=== PATIENT | female | born 1940 | race Caucasian/White ===

== ENCOUNTER 2017-08-23 13:59 | Inpatient (IN) | payer MEDICARE ==
[2017-08-23] MEDS ORDERED: Sodium Chloride 0.9% 10 ML FLUSH Syringe IV PRN (14:24)
[2017-08-23] MEDS ORDERED: Zofran 4 MG/2 ML VIAL IV PRN (14:24)
[2017-08-23] MEDS: Lasix 40 MG PO SCH (16:12)
[2017-08-23] MEDS: Lopressor 50 MG PO SCH (21:14)
[2017-08-23] MEDS: Klor Con 10 MEQ PO SCH (21:14)
[2017-08-23] MEDS: TYLENOL 325 MG PO PRN (21:14)
[2017-08-23] MEDS: Sodium Chloride 0.9% 10 ML FLUSH Syringe IV SCH (21:15)
[2017-08-24] MEDS: Zestril 20 MG PO SCH (09:48)
[2017-08-24] MEDS: Lasix 40 MG PO SCH ×2 (09:48→16:12)
[2017-08-24] MEDS: Klor Con 10 MEQ PO SCH ×2 (09:48→21:46)
[2017-08-24] MEDS: Lopressor 50 MG PO SCH ×2 (09:48→21:46)
[2017-08-24] MEDS: PLAVIX 75 MG Tablet PO SCH (09:48)
[2017-08-24] MEDS: ECOTRIN 81 MG PO SCH (09:48)
[2017-08-24] MEDS: LIPITOR 40MG PO SCH (09:49)
[2017-08-24] MEDS ORDERED: Aplisol ID SCH (10:00)
--- NOTE | 2017-08-24 12:19 | PCM.NOTE ---
Date and Time: 08/24/17 1218 Subjective Assessment: doing ok - Review of Systems Constitutional: No Fever, No Chills Eyes: No Symptoms Ears, Nose, & Throat: No Symptoms Respiratory: No Cough, No Short Of Breath Cardiac: No Chest Pain, No Edema, No Syncope Abdominal/Gastrointestinal: No Abdominal Pain, No Nausea, No Vomiting, No Diarrhea Genitourinary Symptoms: No Dysuria Musculoskeletal: No Back Pain, No Neck Pain Skin: No Rash Neurological: No Dizziness, No Focal Weakness, No Sensory Changes Psychological: No Symptoms Endocrine: No Symptoms Hematologic/Lymphatic: No Symptoms Immunological/Allergic: No Symptoms Objective Exam General Appearance: no apparent distress, alert Neurologic Exam: alert, oriented x 3, cooperative, normal mood/affect, nml cerebellar function, sensation nml, No motor deficits Skin Exam: normal color, warm, dry Eye Exam: PERRL, EOMI, eyes nml inspection Ears, Nose, Throat Exam: normal ENT inspection, pharynx normal, moist mucous membranes Neck Exam: normal inspection, non-tender, supple, full range of motion Respiratory Exam: normal breath sounds, lungs clear, No respiratory distress Cardiovascular Exam: regular rate/rhythm, normal heart sounds Gastrointestinal/Abdomen Exam: soft, No tenderness, No mass Extremity Exam: normal inspection, normal range of motion Back Exam: normal inspection, normal range of motion, No CVA tenderness, No vertebral tenderness Pelvic Exam: deferred Rectal Exam: deferred OBJECTIVE DATA Vital Signs: Vital Signs - 24 hr Temp Pulse Resp BP Pulse Ox 08/24/17 07:44 97.4 F 59 L 18 168/70 99 08/24/17 06:53 100 08/24/17 00:11 97.9 F 61 18 149/68 96 08/23/17 20:00 98.4 F 65 20 170/71 100 08/23/17 19:32 66 20 99 08/23/17 14:11 98 F 86 20 166/74 95 08/23/17 14:00 98 F 86 20 166/74 95 Oxygen-Last 24 hours O2 Percentage 4 Liters = 36% O2 Percentage 4 Liters = 36% O2 Percentage 4 Liters = 36% O2 Percentage 4 Liters = 36% O2 Percentage 4 Liters = 36% Pain Assessment - Last Documented Pain Intensity 4 Pain Scale Used 0-10 Pain Scale Intake and Output: Intake & Output 10/31/08/23/17 08/24/17 08/25/17 11:59 11:59 11:59 11:59 Intake Total 1180 Output Total 1450 Balance -270 Weight 73.527 kg Multi-Disciplinary Progress Notes: Multi-Disciplinary Progress Notes 08/23/17 17:11 Respiratory Note by Michelle Huang N/Alondra 4LPM SPO2 95%. NO SOB ATTHIS TIME Initialized on 08/23/17 17:11 - END OF NOTE Assessment/Plan (1) Transient ischemic attack Current Visit: No Status: Acute Qualifiers: Transient cerebral ischemia type: multiple and bilateral precerebral artery syndromes Qualified Code(s): G45.2 - Multiple and bilateral precerebral artery syndromes (2) Fall at home Current Visit: No Status: Acute Qualifiers: Code(s): W19.XXXA - UNSPECIFIED FALL, INITIAL ENCOUNTER; Y92.099 - UNSP PLACE IN [facility] NON-INSTITUTIONAL RESIDENCE PLACE (3) Fracture of nose, closed Current Visit: No Status: Acute (4) Hypertension Current Visit: No Status: Acute Qualifiers: Code(s): I10 - ESSENTIAL (PRIMARY) HYPERTENSION (5) Pulmonary arterial hypertension Current Visit: No Status: Acute Code(s): I27.21 - SECONDARY PULMONARY ARTERIAL HYPERTENSION
[2017-08-24] MEDS: TYLENOL 325 MG PO PRN ×2 (13:34→21:46)
[2017-08-24] MEDS: Sodium Chloride 0.9% 10 ML FLUSH Syringe IV SCH ×3 (16:09→21:47)
[2017-08-25] MEDS: Sodium Chloride 0.9% 10 ML FLUSH Syringe IV SCH (06:58)
[2017-08-25] MEDS: LIPITOR 40MG PO SCH (09:35)
[2017-08-25] MEDS: PLAVIX 75 MG Tablet PO SCH (09:35)
[2017-08-25] MEDS: Lasix 40 MG PO SCH ×2 (09:36→17:49)
[2017-08-25] MEDS: ECOTRIN 81 MG PO SCH (09:36)
[2017-08-25] MEDS: Zestril 20 MG PO SCH (09:36)
[2017-08-25] MEDS: Lopressor 50 MG PO SCH ×2 (09:36→21:18)
[2017-08-25] MEDS: Klor Con 10 MEQ PO SCH ×2 (09:36→21:18)
--- NOTE | 2017-08-25 13:15 | PCM.NOTE ---
Date and Time: 08/25/17 1314 Subjective Assessment: doing ok - Review of Systems Constitutional: No Fever, No Chills Eyes: No Symptoms Ears, Nose, & Throat: No Symptoms Respiratory: No Cough, No Short Of Breath Cardiac: No Chest Pain, No Edema, No Syncope Abdominal/Gastrointestinal: No Abdominal Pain, No Nausea, No Vomiting, No Diarrhea Genitourinary Symptoms: No Dysuria Musculoskeletal: No Back Pain, No Neck Pain Skin: No Rash Neurological: No Dizziness, No Focal Weakness, No Sensory Changes Psychological: No Symptoms Endocrine: No Symptoms Hematologic/Lymphatic: No Symptoms Immunological/Allergic: No Symptoms Objective Exam General Appearance: no apparent distress, alert Neurologic Exam: alert, oriented x 3, cooperative, normal mood/affect, nml cerebellar function, sensation nml, No motor deficits Skin Exam: normal color, warm, dry Eye Exam: PERRL, EOMI, eyes nml inspection Ears, Nose, Throat Exam: normal ENT inspection, pharynx normal, moist mucous membranes Neck Exam: normal inspection, non-tender, supple, full range of motion Respiratory Exam: normal breath sounds, lungs clear, No respiratory distress Cardiovascular Exam: regular rate/rhythm, normal heart sounds Gastrointestinal/Abdomen Exam: soft, No tenderness, No mass Extremity Exam: normal inspection, normal range of motion Back Exam: normal inspection, normal range of motion, No CVA tenderness, No vertebral tenderness Pelvic Exam: deferred Rectal Exam: deferred OBJECTIVE DATA Vital Signs: Vital Signs - 24 hr Temp Pulse Resp BP Pulse Ox 08/25/17 08:31 99 08/25/17 08:23 97.6 F 65 19 154/69 99 08/24/17 20:47 67 18 99 08/24/17 19:54 97.4 F 67 18 163/72 95 Oxygen-Last 24 hours O2 Percentage 3 Liters = 32% O2 Percentage 4 Liters = 36% Pain Assessment - Last Documented Pain Intensity 0 Pain Scale Used 0-10 Pain Scale Intake and Output: Intake & Output 08/23/17 08/24/17 08/25/17 08/26/17 11:59 11:59 11:59 11:59 Intake Total 1180 1480 Output Total 1450 1100 Balance -270 380 Weight 73.527 kg Assessment/Plan (1) Transient ischemic attack Current Visit: Yes Status: Acute Qualifiers: Transient cerebral ischemia type: multiple and bilateral precerebral artery syndromes Qualified Code(s): G45.2 - Multiple and bilateral precerebral artery syndromes (2) Fall at home Current Visit: No Status: Acute Qualifiers: Code(s): W19.XXXA - UNSPECIFIED FALL, INITIAL ENCOUNTER; Y92.099 - UNSP PLACE IN [facility] NON-INSTITUTIONAL RESIDENCE PLACE (3) Fracture of nose, closed Current Visit: No Status: Acute (4) Hypertension Current Visit: Yes Status: Chronic Qualifiers: Code(s): I10 - ESSENTIAL (PRIMARY) HYPERTENSION (5) Pulmonary arterial hypertension Current Visit: Yes Status: Chronic Code(s): I27.21 - SECONDARY PULMONARY ARTERIAL HYPERTENSION
[2017-08-25] MEDS: Colace 100 MG PO PRN (17:49)
[2017-08-25] MEDS: Senokot-S Tablet PO PRN (17:49)
[2017-08-26 05:53] LABS: BASOPHIL % 0.3 % (0.0-0.4); Eosinophil % 4.6 % (0.00-5.0); Granulocytes % 64.7 % (36.0-66.0); Lymphocytes % 20.4 % (24.0-44.0); Mean Cell Volume 100.4 fl (78-100); Mean Platelet Volume 9.8 fl (6-9.5); Platelet Count 232 K/mm3 (150-450); Red Blood Count 2.56 M/mm3 (4.1-5.4); Red Cell Distribution Width 12.8 % (11.5-14.0); White Blood Count 6.7 K/mm3 (4.0-10.5)
[2017-08-26 05:59] LABS: Mean Corpuscular Hemoglobin 30.4 pg (26-32)
[2017-08-26 06:12] LABS: ALBUMIN 3.1 g/dL (3.4-5.0); ANION GAP 8.4 MEQ/L (5-15); BILIRUBIN,TOTAL 0.2 mg/dL (0.2-1.0); Carbon Dioxide 36.8 mEq/L (21-32); Potassium 4.8 mEq/L (3.5-5.1); Total Protein 6.4 gm/dL (6.4-8.2)
[2017-08-26] MEDS: LIPITOR 40MG PO SCH (09:21)
[2017-08-26] MEDS: ECOTRIN 81 MG PO SCH (09:21)
[2017-08-26] MEDS: Lasix 40 MG PO SCH ×2 (09:21→16:46)
[2017-08-26] MEDS: Klor Con 10 MEQ PO SCH ×2 (09:21→23:12)
[2017-08-26] MEDS: Lopressor 50 MG PO SCH ×2 (09:22→23:12)
[2017-08-26] MEDS: PLAVIX 75 MG Tablet PO SCH (09:22)
[2017-08-26] MEDS: Zestril 20 MG PO SCH (09:22)
[2017-08-26] MEDS: TYLENOL 325 MG PO PRN (16:46)
--- NOTE | 2017-08-26 19:18 | PCM.NOTE ---
Date and Time: 08/26/171916 Subjective Assessment: doing better, had another few seconds episode of TIA - Review of Systems Constitutional: No Fever, No Chills Eyes: No Symptoms Ears, Nose, & Throat: No Symptoms Respiratory: No Cough, No Short Of Breath Cardiac: No Chest Pain, No Edema, No Syncope Abdominal/Gastrointestinal: No Abdominal Pain, No Nausea, No Vomiting, No Diarrhea Genitourinary Symptoms: No Dysuria Musculoskeletal: No Back Pain, No Neck Pain Skin: No Rash Neurological: No Dizziness, No Focal Weakness, No Sensory Changes Psychological: No Symptoms Endocrine: No Symptoms Hematologic/Lymphatic: No Symptoms Immunological/Allergic: No Symptoms Objective Exam General Appearance: no apparent distress, alert Neurologic Exam: alert, oriented x 3, cooperative, normal mood/affect, nml cerebellar function, sensation nml, No motor deficits Skin Exam: normal color, warm, dry Eye Exam: PERRL, EOMI, eyes nml inspection Ears, Nose, Throat Exam: normal ENT inspection, pharynx normal, moist mucous membranes Neck Exam: normal inspection, non-tender, supple, full range of motion Respiratory Exam: normal breath sounds, lungs clear, No respiratory distress Cardiovascular Exam: regular rate/rhythm, normal heart sounds Gastrointestinal/Abdomen Exam: soft, No tenderness, No mass Extremity Exam: normal inspection, normal range of motion Back Exam: normal inspection, normal range of motion, No CVA tenderness, No vertebral tenderness Pelvic Exam: deferred Rectal Exam: deferred OBJECTIVE DATA Vital Signs: Vital Signs - 24 hr Temp Pulse Resp BP Pulse Ox 08/26/17 12:56 98.1 F 66 18 148/65 100 08/26/17 07:57 99 08/26/17 07:42 97.4 F 62 18 158/70 99 08/25/17 20:00 98.5 F 75 16 166/70 94 L Oxygen-Last 24 hours O2 Percentage 4 Liters = 36% Pain Assessment - Last Documented Pain Intensity 6 Pain Scale Used 0-10 Pain Scale Intake and Output: Intake & Output 08/24/17 08/25/17 08/26/17 08/27/17 11:59 11:59 11:59 10:59 Intake Total 1180 1480 1920 600 Output Total 1450 1100 Balance -711 608 2689 600 Weight 73.527 kg Lab Results: Lab Results-Last 24 Hours 08/26/17 08/26/17 Range/Units 05:45 05:45 WBC 6.7 (4.0-10.5) K/mm3 RBC 2.56 L (4.1-5.4) M/mm3 Hgb 7.8 L (12.0-16.0) gm/dl Hct 25.7 L (35-47) % MCV 100.4 H (78-100) fl MCH 30.4 (26-32) pg MCHC 30.4 L (32-36) g/dl RDW 12.8 (11.5-14.0) % Plt Count 232 (150-450) K/mm3 MPV 9.8 H (6-9.5) fl Gran % 64.7 (36.0-66.0) % Lymphocytes % 20.4 L (24.0-44.0) % Monocytes % 10.0 (0.0-12.0) % Eosinophils % 4.6 (0.00-5.0) % Basophils % 0.3 (0.0-0.4) % Basophils # 0.02 (0-0.4) Sodium 137 (136-145) mEq/L Potassium 4.8 (3.5-5.1) mEq/L Chloride 97 L (98-107) mEq/L Carbon Dioxide 36.8 H (21-32) mEq/L Anion Gap 8.4 (5-15) MEQ/L BUN 36 H (9-20) mg/dL Creatinine 1.47 H (0.55-1.30) mg/dl Estimated GFR 37 ML/MIN Glucose 105 (70-110) MG/DL Calcium 8.5 (8.5-10.1) mg/dL Total Bilirubin 0.20 (0.2-1.0) mg/dL AST 15 (15-37) U/L ALT 12 (12-78) U/L Alkaline Phosphatase 44 L (46-116) U/L Serum Total Protein 6.4 (6.4-8.2) gm/dL Albumin 3.1 L (3.4-5.0) g/dL Assessment/Plan (1) Transient ischemic attack Current Visit: Yes Status: Acute Qualifiers: Transient cerebral ischemia type: multiple and bilateral precerebral artery syndromes Qualified Code(s): G45.2 - Multiple and bilateral precerebral artery syndromes Assessment & Plan: Chief Complaint Diagnosis Deconditioning r/t weakness, recent fall, CVA Allergies Allergy/AdvReac Type Severity Reaction Status Date / Time acetaminophen Allergy Verified 06/01/16 16:40 [From Darvocet-N] diltiazem HCl [From Cardizem] Allergy Verified 06/01/16 16:40 hydralazine HCl Allergy Verified 06/01/16 16:40 [From Apresoline] morphine Allergy Verified 06/01/16 16:40 propoxyphene napsylate Allergy Verified 06/01/16 16:40 [From Darvocet-N] tetracycline Allergy Verified 06/01/16 16:40 roxanol Allergy Uncoded 06/01/16 16:40 Vital Signs (Last 24 hours) Temp Pulse Resp BP Pulse Ox 08/26/17 12:56 98.1 F 66 18 148/65 100 08/26/17 07:57 99 08/26/17 07:42 97.4 F 62 18 158/70 99 08/25/17 20:00 98.5 F 75 16 166/70 94 L Current Medications Generic Name Dose Route Start Last Admin Trade Name Freq PRN Reason Stop Dose Admin Acetaminophen 650 mg 08/23/17 14:24 08/26/17 16:46 Tylenol 325 Mg PO 09/17/17 12:38 650 mg Q4H PRN PRN Administration PAIN, FEVER, HEADACHE Aspirin 81 mg 08/23/17 14:24 08/26/17 09:21 Ecotrin 81 Mg PO 09/21/17 17:29 81 mg DAILY BARBIE Administration Atorvastatin Calcium 80 mg 08/23/17 14:24 08/26/17 09:21 Lipitor 40mg PO 09/21/17 17:59 80 mg DAILY BARBIE Administration Clopidogrel Bisulfate 75 mg 08/23/17 14:24 08/26/17 09:22 Plavix 75 Mg Tablet PO 09/22/17 09:59 75 mg DAILY BARBIE Administration Docusate Sodium 100 mg 08/23/17 14:24 08/25/17 17:49 Colace 100 Mg PO 09/17/17 12:53 100 mg BID PRN PRN Administration CONSTIPATION Furosemide 40 mg 08/23/17 14:24 08/26/17 16:46 Lasix 40 Mg PO 09/17/17 16:59 40 mg BID DIURETIC BARBIE Administration Lisinopril 40 mg 08/23/17 14:24 08/26/17 09:22 Zestril 20 Mg PO 09/19/17 09:59 40 mg DAILY BARBIE Administration Metoprolol Tartrate 50 mg 08/23/17 14:24 08/26/17 09:22 Lopressor 50 Mg PO 09/19/17 09:59 50 mg BID BARBIE Administration Ondansetron HCl 4 mg 08/23/17 14:24 Zofran 4 Mg/2 Ml Vial IV 09/19/17 05:48 Q4H PRN PRN NAUSEA/VOMITING Potassium Chloride 10 meq 08/23/17 14:24 08/26/17 09:21 Klor Con 10 Meq PO 09/17/17 21:59 10 meq BID BARBIE Administration Senna/Docusate Sodium 0 udtab 08/23/17 14:24 08/25/17 17:49 Senokot-S Tablet PO 09/17/17 12:53 1 udtab BID PRN PRN Administration CONSTIPATION Tuberculin PPD 5 unit 09/03/17 10:00 Aplisol ID 09/03/17 10:01 DAILY BARBIE Discontinued Medications Generic Name Dose Route Start Last Admin Trade Name Freq PRN Reason Stop Dose Admin Sodium Chloride 10 ml 08/23/17 14:24 08/25/17 06:58 Sodium Chloride 0.9% 10 Ml Flush Syringe IV 09/22/17 13:59 Not Given Q8HT BARBIE Sodium Chloride 10 ml 08/23/17 14:24 Sodium Chloride 0.9% 10 Ml Flush Syringe IV 09/22/17 09:14 PRN PRN FLUSH Tuberculin PPD 5 unit 08/24/17 10:00 08/24/17 09:52 Aplisol ID 08/24/17 10:01 5 unit DAILY BARBIE Administration Intake & Output (Last 24 hours) 08/24/17 08/25/17 08/26/17 08/27/17 11:59 11:59 11:59 10:59 Intake Total 1180 1480 1920 600 Output Total 1450 1100 Balance -636 824 0139 600 Weight 73.527 kg Laboratory Results (Last 24 hours) 08/26/17 08/26/17 05:45 05:45 WBC 6.7 RBC 2.56 L Hgb 7.8 L Hct 25.7 L MCV 100.4 H MCH 30.4 MCHC 30.4 L RDW 12.8 Plt Count 232 MPV 9.8 H Gran % 64.7 Lymphocytes % 20.4 L Monocytes % 10.0 Eosinophils % 4.6 Basophils % 0.3 Basophils # 0.02 Sodium 137 Potassium 4.8 Chloride 97 L Carbon Dioxide 36.8 H Anion Gap 8.4 BUN 36 H Creatinine 1.47 H Estimated GFR 37 Glucose 105 Calcium 8.5 Total Bilirubin 0.20 AST 15 ALT 12 Alkaline Phosphatase 44 L Serum Total Protein 6.4 Albumin 3.1 L Orders (Last 24 hours) Category Date Time Status BMP Routine Lab 09/06/17 04:00 Ordered CBC Routine Lab 08/27/17 04:00 Ordered CBC W DIFF Routine Lab 08/26/17 05:45 Completed CMP Routine Lab 08/26/17 05:45 Completed Tuberculin,Purif.prot.deriv. [Aplisol] Med 09/03/17 10:00 Active 5 unit ID DAILY Patient Care Notes (Last 24 hours) 08/26/17 13:00 (created 08/26/17 13:14) Nursing Note by Alva Jose Reported to this nurse pt c/o R hand feeling numb.Pt stated when she attempted to move her R hand she was unable to do so; flaccid @ time of occurrence.R hand was wrapped in blanket via warmer. B/P148/65 HR 66. t 98.1 Sp02 100% via 4 L. Pt A&O. Easy resp. ADRIAN. Episode resolve in time of V/S obtain, blanket applied and reported to this nurse. Speech cl. Pt R hand at time of neuro check was sl weaker < the left. Pt was able to lift RUE and leave per command without difficulty. Pt continue to visit and joke with family and staff. Up in chair. Call light in reach. BLe elevated at this time. Initialized on 08/26/17 13:14 - END OF NOTE 08/26/17 03:03 Nursing Note by Tiny Fernandez pt had warm prune juice, earlier in shift, had large results at approx 0030. Initialized on 08/26/17 03:03 - END OF NOTE (2) Fall at home Current Visit: No Status: Chronic Qualifiers: Code(s): W19.XXXA - UNSPECIFIED FALL, INITIAL ENCOUNTER; Y92.099 - UNSP PLACE IN [facility] NON-INSTITUTIONAL RESIDENCE PLACE (3) Fracture of nose, closed Current Visit: No Status: Acute (4) Hypertension Current Visit: Yes Status: Chronic Qualifiers: Hypertension type: essential hypertension Code(s): I10 - ESSENTIAL (PRIMARY) HYPERTENSION (5) Pulmonary arterial hypertension Current Visit: Yes Status: Chronic Code(s): I27.21 - SECONDARY PULMONARY ARTERIAL HYPERTENSION
[2017-08-26] MEDS: Colace 100 MG PO PRN (23:18)
[2017-08-27 05:55] LABS: Mean Cell Volume 101.6 fl (78-100); Mean Platelet Volume 9.6 fl (6-9.5); Platelet Count 229 K/mm3 (150-450); Red Blood Count 2.51 M/mm3 (4.1-5.4); White Blood Count 5.2 K/mm3 (4.0-10.5)
[2017-08-27 05:59] LABS: Mean Corpuscular Hemoglobin 30.2 pg (26-32)
[2017-08-27] MEDS: ECOTRIN 81 MG PO SCH (08:45)
[2017-08-27] MEDS: Zestril 20 MG PO SCH ×2 (08:46→08:47)
[2017-08-27] MEDS: Lasix 40 MG PO SCH ×2 (08:46→17:20)
[2017-08-27] MEDS: Klor Con 10 MEQ PO SCH ×2 (08:46→23:23)
[2017-08-27] MEDS: PLAVIX 75 MG Tablet PO SCH (08:46)
[2017-08-27] MEDS: LIPITOR 40MG PO SCH (08:46)
[2017-08-27] MEDS: Lopressor 50 MG PO SCH ×2 (08:46→23:23)
[2017-08-27] MEDS: FEOSOL 325 MG PO SCH (08:49)
[2017-08-27] MEDS: Colace 100 MG PO PRN (17:33)
[2017-08-27] MEDS ORDERED: AMMONIA AROMATIC IH ONE (22:01)
[2017-08-27] MEDS: TYLENOL 325 MG PO PRN (23:22)
[2017-08-28 05:49] LABS: BASOPHIL % 0.4 % (0.0-0.4); Eosinophil % 7.2 % (0.00-5.0); Granulocytes % 51.4 % (36.0-66.0); Lymphocytes % 29.3 % (24.0-44.0); Mean Cell Volume 102.5 fl (78-100); Mean Corpuscular Hemoglobin 30.9 pg (26-32); Mean Platelet Volume 9.8 fl (6-9.5); Monocytes % 11.7 % (0.0-12.0); Platelet Count 217 K/mm3 (150-450); Red Blood Count 2.36 M/mm3 (4.1-5.4); Red Cell Distribution Width 13.1 % (11.5-14.0); White Blood Count 5.2 K/mm3 (4.0-10.5)
[2017-08-28] MEDS: Lopressor 50 MG PO SCH ×2 (10:13→22:08)
[2017-08-28] MEDS: FEOSOL 325 MG PO SCH (10:13)
[2017-08-28] MEDS: Klor Con 10 MEQ PO SCH ×2 (10:13→22:08)
[2017-08-28] MEDS: Zestril 20 MG PO SCH (10:13)
[2017-08-28] MEDS: ECOTRIN 81 MG PO SCH (10:13)
[2017-08-28] MEDS: PLAVIX 75 MG Tablet PO SCH (10:13)
[2017-08-28] MEDS: LIPITOR 40MG PO SCH (10:13)
[2017-08-28] MEDS: Lasix 40 MG PO SCH ×2 (10:13→16:36)
[2017-08-28] MEDS: TYLENOL 325 MG PO PRN ×2 (11:33→16:54)
--- NOTE | 2017-08-28 13:04 | PCM.NOTE ---
Date and Time: 08/28/17 1303 Subjective Assessment: doing ok - Review of Systems Constitutional: No Fever, No Chills Eyes: No Symptoms Ears, Nose, & Throat: No Symptoms Respiratory: No Cough, No Short Of Breath Cardiac: No Chest Pain, No Edema, No Syncope Abdominal/Gastrointestinal: No Abdominal Pain, No Nausea, No Vomiting, No Diarrhea Genitourinary Symptoms: No Dysuria Musculoskeletal: No Back Pain, No Neck Pain Skin: No Rash Neurological: No Dizziness, No Focal Weakness, No Sensory Changes Psychological: No Symptoms Endocrine: No Symptoms Hematologic/Lymphatic: No Symptoms Immunological/Allergic: No Symptoms Objective Exam General Appearance: no apparent distress, alert Neurologic Exam: alert, oriented x 3, cooperative, normal mood/affect, nml cerebellar function, sensation nml, No motor deficits Skin Exam: normal color, warm, dry Eye Exam: PERRL, EOMI, eyes nml inspection Ears, Nose, Throat Exam: normal ENT inspection, pharynx normal, moist mucous membranes Neck Exam: normal inspection, non-tender, supple, full range of motion Respiratory Exam: normal breath sounds, lungs clear, No respiratory distress Cardiovascular Exam: regular rate/rhythm, normal heart sounds Gastrointestinal/Abdomen Exam: soft, No tenderness, No mass Extremity Exam: normal inspection, normal range of motion Back Exam: normal inspection, normal range of motion, No CVA tenderness, No vertebral tenderness Pelvic Exam: deferred Rectal Exam: deferred OBJECTIVE DATA Vital Signs: Vital Signs - 24 hr Temp Pulse Resp BP Pulse Ox 08/28/17 11:24 99 08/28/17 07:22 98.0 F 58 L 18 142/64 97 08/27/17 20:00 97.6 F 76 18 172/72 94 L Oxygen-Last 24 hours O2 Percentage 3 Liters = 32% O2 Percentage 4 Liters = 36% Pain Assessment - Last Documented Pain Intensity 7 Pain Scale Used 0-10 Pain Scale Intake and Output: Intake & Output 08/26/17 08/27/17 08/28/17 08/29/17 12:59 11:59 11:59 11:59 Intake Total 1440 Balance 1440 Lab Results: Lab Results-Last 24 Hours 08/28/17 Range/Units 05:05 WBC 5.2 (4.0-10.5) K/mm3 RBC 2.36 L (4.1-5.4) M/mm3 Hgb 7.3 L (12.0-16.0) gm/dl Hct 24.2 L (35-47) % MCV 102.5 H (78-100) fl MCH 30.9 (26-32) pg MCHC 30.2 L (32-36) g/dl RDW 13.1 (11.5-14.0) % Plt Count 217 (150-450) K/mm3 MPV 9.8 H (6-9.5) fl Gran % 51.4 (36.0-66.0) % Lymphocytes % 29.3 (24.0-44.0) % Monocytes % 11.7 (0.0-12.0) % Eosinophils % 7.2 H (0.00-5.0) % Basophils % 0.4 (0.0-0.4) % Basophils # 0.02 (0-0.4) Assessment/Plan (1) Transient ischemic attack Current Visit: Yes Status: Resolved Qualifiers: Transient cerebral ischemia type: multiple and bilateral precerebral artery syndromes Qualified Code(s): G45.2 - Multiple and bilateral precerebral artery syndromes (2) Fall at home Current Visit: No Status: Chronic Qualifiers: Code(s): W19.XXXA - UNSPECIFIED FALL, INITIAL ENCOUNTER; Y92.099 - UNSP PLACE IN [facility] NON-INSTITUTIONAL RESIDENCE PLACE (3) Fracture of nose, closed Current Visit: No Status: Acute (4) Hypertension Current Visit: Yes Status: Chronic Qualifiers: Hypertension type: essential hypertension Code(s): I10 - ESSENTIAL (PRIMARY) HYPERTENSION (5) Pulmonary arterial hypertension Current Visit: Yes Status: Chronic Code(s): I27.21 - SECONDARY PULMONARY ARTERIAL HYPERTENSION (6) Hiatal hernia with gastroesophageal reflux disease and esophagitis Current Visit: Yes Status: Acute Code(s): K44.9 - DIAPHRAGMATIC HERNIA WITHOUT OBSTRUCTION OR GANGRENE; K21.0 - GASTRO-ESOPHAGEAL REFLUX DISEASE WITH ESOPHAGITIS
[2017-08-28] MEDS: Protonix 40MG Tablet PO SCH ×2 (13:20→22:08)
[2017-08-28] MEDS ORDERED: Sodium Chloride 0.9% 1000 ML 1,000 ML IV SCH (14:15)
[2017-08-28] MEDS: Senokot-S Tablet PO PRN (16:54)
[2017-08-29] MEDS: Lasix 40 MG PO SCH ×2 (09:39→17:20)
[2017-08-29] MEDS: ECOTRIN 81 MG PO SCH (09:39)
[2017-08-29] MEDS: PLAVIX 75 MG Tablet PO SCH (09:39)
[2017-08-29] MEDS: Lopressor 50 MG PO SCH ×2 (09:39→21:57)
[2017-08-29] MEDS: Zestril 20 MG PO SCH (09:39)
[2017-08-29] MEDS: FEOSOL 325 MG PO SCH (09:39)
[2017-08-29] MEDS: Klor Con 10 MEQ PO SCH ×2 (09:39→21:57)
[2017-08-29] MEDS: Protonix 40MG Tablet PO SCH ×2 (09:39→21:57)
[2017-08-29] MEDS: LIPITOR 40MG PO SCH (09:40)
--- NOTE | 2017-08-29 23:39 | PCM.NOTE ---
Date and Time: 08/29/17 2335 Subjective Assessment: doing better - Review of Systems Constitutional: No Fever, No Chills Eyes: No Symptoms Ears, Nose, & Throat: No Symptoms Respiratory: No Cough, No Short Of Breath Cardiac: No Chest Pain, No Edema, No Syncope Abdominal/Gastrointestinal: No Abdominal Pain, No Nausea, No Vomiting, No Diarrhea Genitourinary Symptoms: No Dysuria Musculoskeletal: No Back Pain, No Neck Pain Skin: No Rash Neurological: No Dizziness, No Focal Weakness, No Sensory Changes Psychological: No Symptoms Endocrine: No Symptoms Hematologic/Lymphatic: No Symptoms Immunological/Allergic: No Symptoms Objective Exam General Appearance: no apparent distress, alert Neurologic Exam: alert, oriented x 3, cooperative, normal mood/affect, nml cerebellar function, sensation nml, No motor deficits Skin Exam: normal color, warm, dry Eye Exam: PERRL, EOMI, eyes nml inspection Ears, Nose, Throat Exam: normal ENT inspection, pharynx normal, moist mucous membranes Neck Exam: normal inspection, non-tender, supple, full range of motion Respiratory Exam: normal breath sounds, lungs clear, No respiratory distress Cardiovascular Exam: regular rate/rhythm, normal heart sounds Gastrointestinal/Abdomen Exam: soft, No tenderness, No mass Extremity Exam: normal inspection, normal range of motion Back Exam: normal inspection, normal range of motion, No CVA tenderness, No vertebral tenderness Pelvic Exam: deferred Rectal Exam: deferred OBJECTIVE DATA Vital Signs: Vital Signs - 24 hr Temp Pulse Resp BP Pulse Ox 08/29/17 21:59 97.7 F 67 18 159/68 100 08/29/17 19:33 99 08/29/17 16:44 66 14 97 Oxygen-Last 24 hours O2 Percentage 4 Liters = 36% Pain Assessment - Last Documented Pain Intensity 3 Pain Scale Used 0-10 Pain Scale Intake and Output: Intake & Output 08/27/17 08/28/17 08/29/17 08/30/17 11:59 11:59 11:59 11:59 Intake Total 1440 1540 1320 Balance 1440 1540 1320 Lab Results: Lab Results-Last 24 Hours 08/29/17 Range/Units 01:06 Hgb 8.7 L (12.0-16.0) gm/dl Hct 28.0 L (35-47) % Multi-Disciplinary Progress Notes: Multi-Disciplinary Progress Notes 08/29/17 11:35 (created 08/29/17 15:20) Case Management Note by Asia Ocasio CONTINUES TO PLAN TO RETURN TO APARTMENT ON DISCHARGE. NORMALLY INDEPENDENT WITH ALL ADL'S. LIKELY WILL HAVE [facility] TO FOLLOW ON DISCHARGE FOR ADDNL SUPPORT. HAS ALL NECESSARY EQUIP AT HOME. USES 4L OXYGEN PER NC, 15/05. [employer]IES ALL HOME OXYGEN. Initialized on 08/29/17 15:20 - END OF NOTE Assessment/Plan (1) Transient ischemic attack Current Visit: Yes Status: Resolved Qualifiers: Transient cerebral ischemia type: multiple and bilateral precerebral artery syndromes Qualified Code(s): G45.2 - Multiple and bilateral precerebral artery syndromes (2) Fall at home Current Visit: No Status: Chronic Qualifiers: Code(s): W19.XXXA - UNSPECIFIED FALL, INITIAL ENCOUNTER; Y92.099 - UNSP PLACE IN [facility] NON-INSTITUTIONAL RESIDENCE PLACE (3) Fracture of nose, closed Current Visit: No Status: Acute (4) Hypertension Current Visit: Yes Status: Chronic Qualifiers: Hypertension type: essential hypertension Code(s): I10 - ESSENTIAL (PRIMARY) HYPERTENSION (5) Pulmonary arterial hypertension Current Visit: Yes Status: Chronic Code(s): I27.21 - SECONDARY PULMONARY ARTERIAL HYPERTENSION (6) Hiatal hernia with gastroesophageal reflux disease and esophagitis Current Visit: Yes Status: Acute Code(s): K44.9 - DIAPHRAGMATIC HERNIA WITHOUT OBSTRUCTION OR GANGRENE; K21.0 - GASTRO-ESOPHAGEAL REFLUX DISEASE WITH ESOPHAGITIS
[2017-08-30] MEDS: Lopressor 50 MG PO SCH ×2 (10:49→21:18)
[2017-08-30] MEDS: Lasix 40 MG PO SCH ×2 (10:49→17:11)
[2017-08-30] MEDS: Klor Con 10 MEQ PO SCH ×2 (10:49→21:18)
[2017-08-30] MEDS: Zestril 20 MG PO SCH (10:49)
[2017-08-30] MEDS: FEOSOL 325 MG PO SCH (10:49)
[2017-08-30] MEDS: PLAVIX 75 MG Tablet PO SCH (10:49)
[2017-08-30] MEDS: Protonix 40MG Tablet PO SCH ×2 (10:58→21:18)
[2017-08-30] MEDS: ECOTRIN 81 MG PO SCH (10:58)
[2017-08-30] MEDS: LIPITOR 40MG PO SCH (10:59)
--- NOTE | 2017-08-30 12:51 | PCM.NOTE ---
Date and Time: 08/30/17 1250 Subjective Assessment: doing ok - Review of Systems Constitutional: No Fever, No Chills Eyes: No Symptoms Ears, Nose, & Throat: No Symptoms Respiratory: No Cough, No Short Of Breath Cardiac: No Chest Pain, No Edema, No Syncope Abdominal/Gastrointestinal: No Abdominal Pain, No Nausea, No Vomiting, No Diarrhea Genitourinary Symptoms: No Dysuria Musculoskeletal: No Back Pain, No Neck Pain Skin: No Rash Neurological: No Dizziness, No Focal Weakness, No Sensory Changes Psychological: No Symptoms Endocrine: No Symptoms Hematologic/Lymphatic: No Symptoms Immunological/Allergic: No Symptoms Objective Exam General Appearance: no apparent distress, alert Neurologic Exam: alert, oriented x 3, cooperative, normal mood/affect, nml cerebellar function, sensation nml, No motor deficits Skin Exam: normal color, warm, dry Eye Exam: PERRL, EOMI, eyes nml inspection Ears, Nose, Throat Exam: normal ENT inspection, pharynx normal, moist mucous membranes Neck Exam: normal inspection, non-tender, supple, full range of motion Respiratory Exam: normal breath sounds, lungs clear, No respiratory distress Cardiovascular Exam: regular rate/rhythm, normal heart sounds Gastrointestinal/Abdomen Exam: soft, No tenderness, No mass Extremity Exam: normal inspection, normal range of motion Back Exam: normal inspection, normal range of motion, No CVA tenderness, No vertebral tenderness Pelvic Exam: deferred Rectal Exam: deferred OBJECTIVE DATA Vital Signs: Vital Signs - 24 hr Temp Pulse Resp BP Pulse Ox 08/30/17 07:58 98.2 F 83 18 149/66 96 08/30/17 07:52 96 08/29/17 21:59 97.7 F 67 18 159/68 100 08/29/17 19:33 99 08/29/17 16:44 66 14 97 Oxygen-Last 24 hours O2 Percentage 4 Liters = 36% O2 Percentage 4 Liters = 36% Pain Assessment - Last Documented Pain Intensity 3 Pain Scale Used 0-10 Pain Scale Intake and Output: Intake & Output 08/28/17 08/29/17 08/30/17 08/31/17 11:59 11:59 11:59 11:59 Intake Total 1440 1540 1800 Balance 1440 1540 1800 Assessment/Plan (1) Transient ischemic attack Current Visit: Yes Status: Resolved Qualifiers: Transient cerebral ischemia type: multiple and bilateral precerebral artery syndromes Qualified Code(s): G45.2 - Multiple and bilateral precerebral artery syndromes (2) Fall at home Current Visit: No Status: Chronic Qualifiers: Code(s): W19.XXXA - UNSPECIFIED FALL, INITIAL ENCOUNTER; Y92.099 - UNSP PLACE IN [facility] NON-INSTITUTIONAL RESIDENCE PLACE (3) Fracture of nose, closed Current Visit: No Status: Acute (4) Hypertension Current Visit: Yes Status: Chronic Qualifiers: Hypertension type: essential hypertension Code(s): I10 - ESSENTIAL (PRIMARY) HYPERTENSION (5) Pulmonary arterial hypertension Current Visit: Yes Status: Chronic Code(s): I27.21 - SECONDARY PULMONARY ARTERIAL HYPERTENSION (6) Hiatal hernia with gastroesophageal reflux disease and esophagitis Current Visit: Yes Status: Acute Code(s): K44.9 - DIAPHRAGMATIC HERNIA WITHOUT OBSTRUCTION OR GANGRENE; K21.0 - GASTRO-ESOPHAGEAL REFLUX DISEASE WITH ESOPHAGITIS
[2017-08-30] MEDS: TYLENOL 325 MG PO PRN (20:36)
[2017-08-31] MEDS: FEOSOL 325 MG PO SCH (10:11)
[2017-08-31] MEDS: Protonix 40MG Tablet PO SCH ×2 (10:12→22:48)
[2017-08-31] MEDS: PLAVIX 75 MG Tablet PO SCH (10:12)
[2017-08-31] MEDS: Lasix 40 MG PO SCH ×2 (10:12→16:07)
[2017-08-31] MEDS: Zestril 20 MG PO SCH (10:12)
[2017-08-31] MEDS: ECOTRIN 81 MG PO SCH (10:12)
[2017-08-31] MEDS: Klor Con 10 MEQ PO SCH ×2 (10:13→22:48)
[2017-08-31] MEDS: Lopressor 50 MG PO SCH ×2 (10:13→22:48)
[2017-08-31] MEDS: LIPITOR 40MG PO SCH (10:14)
[2017-08-31] MEDS: TYLENOL 325 MG PO PRN ×2 (10:23→20:13)
--- NOTE | 2017-08-31 11:56 | PCM.NOTE ---
Date and Time: 08/31/17 1155 Subjective Assessment: doing ok Objective Exam General Appearance: no apparent distress, alert Neurologic Exam: alert, oriented x 3, cooperative, normal mood/affect, nml cerebellar function, sensation nml, No motor deficits Skin Exam: normal color, warm, dry Eye Exam: PERRL, EOMI, eyes nml inspection Ears, Nose, Throat Exam: normal ENT inspection, pharynx normal, moist mucous membranes Neck Exam: normal inspection, non-tender, supple, full range of motion Respiratory Exam: normal breath sounds, lungs clear, No respiratory distress Cardiovascular Exam: regular rate/rhythm, normal heart sounds Gastrointestinal/Abdomen Exam: soft, No tenderness, No mass Extremity Exam: normal inspection, normal range of motion Back Exam: normal inspection, normal range of motion, No CVA tenderness, No vertebral tenderness Pelvic Exam: deferred Rectal Exam: deferred OBJECTIVE DATA Vital Signs: Vital Signs - 24 hr Temp Pulse Resp BP Pulse Ox 08/31/17 07:57 97.8 F 70 16 193/90 95 08/31/17 07:01 99 08/31/17 00:00 68 153/68 08/30/17 21:00 98.4 F 78 20 177/74 96 Oxygen-Last 24 hours O2 Percentage 4 Liters = 36% O2 Percentage 4 Liters = 36% Pain Assessment - Last Documented Pain Intensity 0 Pain Scale Used 0-10 Pain Scale Intake and Output: Intake & Output 08/28/17 08/29/17 08/30/17 08/31/17 11:59 11:59 11:59 11:59 Intake Total 1440 1540 1800 1600 Balance 1440 1540 1800 1600 Multi-Disciplinary Progress Notes: Multi-Disciplinary Progress Notes 08/30/17 15:45 Physical Therapy Note by Alejandrina Patrick PATIENT TOLERATING MORE RESISTIVE EXERCISE ACTIVITIES AND MAINTAINING O2 SATS WITH 4L O2 NC AT ALL TIMES. FUNCTIONAL MOBILITY WITH ROLLER WALKER IS STABLE WITH CUES TO KEEP WALKER CLOSE ENOUGH TO SUPPORT ERECT POSTURE. MOTOR PRODUCTION IN ISOLATED MUSCLE TASKS IS STILL LABORED, BUT GROSS MOTOR TASKS ARE MORE FLUID. COGNITIVE STATUS BETTER, BUT STILL VAGUE AT TIMES. Initialized on 08/30/17 15:45 - END OF NOTE Assessment/Plan (1) Transient ischemic attack Current Visit: Yes Status: Resolved Qualifiers: Transient cerebral ischemia type: multiple and bilateral precerebral artery syndromes Qualified Code(s): G45.2 - Multiple and bilateral precerebral artery syndromes (2) Fall at home Current Visit: No Status: Chronic Qualifiers: Code(s): W19.XXXA - UNSPECIFIED FALL, INITIAL ENCOUNTER; Y92.099 - UNSP PLACE IN [facility] NON-INSTITUTIONAL RESIDENCE PLACE (3) Fracture of nose, closed Current Visit: No Status: Acute (4) Hypertension Current Visit: Yes Status: Chronic Qualifiers: Hypertension type: essential hypertension Code(s): I10 - ESSENTIAL (PRIMARY) HYPERTENSION (5) Pulmonary arterial hypertension Current Visit: Yes Status: Chronic Code(s): I27.21 - SECONDARY PULMONARY ARTERIAL HYPERTENSION (6) Hiatal hernia with gastroesophageal reflux disease and esophagitis Current Visit: Yes Status: Acute Code(s): K44.9 - DIAPHRAGMATIC HERNIA WITHOUT OBSTRUCTION OR GANGRENE; K21.0 - GASTRO-ESOPHAGEAL REFLUX DISEASE WITH ESOPHAGITIS
[2017-08-31 20:05] VITALS: BP 150/66
[2017-09-01 07:37] VITALS: PULSE 72; O2SAT 97
[2017-09-01] MEDS: FEOSOL 325 MG PO SCH (07:57)
[2017-09-01] MEDS: ECOTRIN 81 MG PO SCH (07:58)
[2017-09-01] MEDS: Lasix 40 MG PO SCH (07:58)
[2017-09-01] MEDS: Zestril 20 MG PO SCH (07:58)
[2017-09-01] MEDS: PLAVIX 75 MG Tablet PO SCH (07:58)
[2017-09-01] MEDS: Lopressor 50 MG PO SCH (07:59)
[2017-09-01] MEDS: LIPITOR 40MG PO SCH (07:59)
[2017-09-01] MEDS: Klor Con 10 MEQ PO SCH (07:59)
[2017-09-01] MEDS: Protonix 40MG Tablet PO SCH (07:59)
[2017-09-01] MEDS: TYLENOL 325 MG PO PRN (10:11)
[2017-09-03] MEDS ORDERED: Aplisol ID SCH (10:00)
== END 2017-09-01 11:25 | disposition home or self-care (01) | DRG 69 ==
LOC: MED SURG 14:01
PROVIDERS: ADMIT General Practice; ATTEND General Practice
DX: G45.2 Multiple and bilateral precerebral artery syndromes (principal); I50.43 Acute on chronic combined systolic (congestive) and diastolic (congestive) heart failure; W19.XXXA Unspecified fall, initial encounter; S02.2XXA Fracture of nasal bones, initial encounter for closed fracture; I10 Essential (primary) hypertension; I27.21 Secondary pulmonary arterial hypertension; K44.9 Diaphragmatic hernia without obstruction or gangrene; K21.0 Gastro-esophageal reflux disease with esophagitis; R53.81 Other malaise; J84.10 Pulmonary fibrosis, unspecified; E78.5 Hyperlipidemia, unspecified; R55 Syncope and collapse; Z79.899 Other long term (current) drug therapy
CPT/HCPCS: 36415; 36430; 80053; 82270; 85014; 85018; 85025; 85027; 86850; 86900; 86901; 86922; 94760; P9016; 97110-GP; A9270-GY

== ENCOUNTER 2019-01-07 19:17 | Emergency (ER) | payer MEDICARE ==
--- NOTE | 2019-01-07 19:44 | ERPHSYRPT ---
- History of Present Illness Time Seen by Provider: 01/07/19 19:43 Source: patient, family Exam Limitations: clinical condition Patient Subjective Stated Complaint: Pt states family made her come in. Family states she has had some confusion x 2 days and hx of confusion with UTI's. pt c/ o intermittent burning with urination. Triage Nursing Assessment: [place]/warm/dry, resp easy, a&ox4, wheeled to room ( uses walker at home to ambulate). No noted confusion at this time. Physician History: 78 y/o white female presents with 2 day h/o increasing confusion. similar sx when pt has a uti. pt did not fall. pts family states this is pretty typical for pt. we have agreed to check for uti prior to embarking on an extensive workup. pt denies headache, she denies cp, denies cough, denies abd pain. pt has painful urination. denies diarrhea. Timing/Duration: day(s) (2) Severity: mild Baseline/Normal Cognition: alert oriented x 3 Current Cognition: alert oriented x 3 Baseline Gait: walks w/o assistance Associated Symptoms: other (dysuria), No nausea, No vomiting, No numbness/ tingling in legs/feet, No slurred speech, No headache Allergies/Adverse Reactions: acetaminophen [From Darvocet-N] Allergy (Verified 06/01/16 16:40) diltiazem HCl [From Cardizem] Allergy (Verified 06/01/16 16:40) hydralazine HCl [From Apresoline] Allergy (Verified 06/01/16 16:40) morphine Allergy (Verified 06/01/16 16:40) propoxyphene napsylate [From Darvocet-N] Allergy (Verified 06/01/16 16:40) tetracycline Allergy (Verified 06/01/16 16:40) roxanol Allergy (Uncoded 06/01/16 16:40) Home Medications: Diazepam 5 mg [Valium 5 MG] 5 mg PO BID 06/01/16 [History] Docusate Sodium 100 mg [Colace 100 MG] 100 mg PO BID PRN PRN 06/01/16 [ History] Furosemide 40 mg [Lasix 40 MG] 40 mg PO BID 06/01/16 [History] Metoprolol Tartrate 50 mg [Lopressor 50 MG] 50 mg PO BID 06/01/16 [History ] Potassium Chloride 10 Meq Tab* [Klor Con 10 MEQ] 10 meq PO BID 06/01/16 [ History] Sennosides/Docusate Sodium [Senokot-S Tablet] 1 - 2 each PO BID PRN PRN [History] Hx Tetanus, Diphtheria Vaccination/Date Given: Yes Hx Influenza Vaccination/Date Given: No Hx Pneumococcal Vaccination/Date Given: No Immunizations Up to Date: Yes - Review of Systems Constitutional: No Symptoms Eyes: No Symptoms Ears, Nose, & Throat: No Symptoms Respiratory: No Symptoms Cardiac: No Symptoms Abdominal/Gastrointestinal: No Symptoms Genitourinary Symptoms: Dysuria, Frequency Musculoskeletal: No Symptoms Skin: No Symptoms Neurological: No Symptoms Psychological: No Symptoms Endocrine: No Symptoms Hematologic/Lymphatic: No Symptoms Immunological/Allergic: No Symptoms All Other Systems: Reviewed and Negative - Past Medical History Pertinent Past Medical History: Yes Neurological History: Seizures, Stroke, TIA ENT History: Cataracts Cardiac History: Congestive Heart Failure, Hypertension Respiratory History: CHF, Other Endocrine Medical History: No Pertinent History Musculoskeletal History: Arthritis GI Medical History: Ulcer History: No Pertinent History Psycho-Social History: No Pertinent History Female Reproductive Disorders: No Pertinent History Other Medical History: pulmonary fibrosis, anemia, hand tremors post stroke - Past Surgical History Past Surgical History: Yes Neuro Surgical History: No Pertinent History Cardiac: No Pertinent History Respiratory: No Pertinent History Gastrointestinal: Appendectomy, Cholecystectomy Genitourinary: No Pertinent History Musculoskeletal: No Pertinent History Female Surgical History: Hysterectomy Other Surgical History: knee surgery - Social History Smoking Status: Never smoker Exposure to second hand smoke: No Drug Use: none Patient Lives Alone: No - Female History Hx Now: No - Nursing Vital Signs Nursing Vital Signs: Initial Vital Signs Temperature 97.9 F 01/07/19 19:29 Pulse Rate 74 01/07/19 19:29 Respiratory Rate 16 01/07/19 19:29 Blood Pressure 190/96 01/07/19 19:29 O2 Sat by Pulse Oximetry 96 01/07/19 19:29 - [place] Coma Scale Best Eye Response ([place]): (4) open spontaneously Best Verbal Response ([place]): (5) oriented Best Motor Response ([place]): (6) obeys commands [place] Total: 15 - Physical Exam General Appearance: no apparent distress, alert Eye Exam: bilateral eye: normal inspection, PERRL, EOMI Ears, Nose, Throat Exam: normal ENT inspection, moist mucous membranes Neck Exam: normal inspection, non-tender, supple, full range of motion Respiratory: normal breath sounds, lungs clear, airway intact, No chest tenderness, No respiratory distress Cardiovascular: regular rate/rhythm, normal heart sounds, normal peripheral pulses Gastrointestinal: soft, normal bowel sounds, No tenderness, No guarding, No rebound Pelvic Exam: not done Rectal Exam: not done Back Exam: normal inspection, normal range of motion, CVA tenderness Extremity Exam: normal inspection, normal range of motion, pelvis stable Mental Status: alert, oriented x 3, cooperative guest advisor Exam: normal hearing, normal speech, PERRL, tongue midline Coordination/Gait: normal finger to nose Motor/Sensory: no motor deficit, no sensory deficit Skin Exam: normal color, warm, dry SpO2 Interpretation: normal SpO2: 96 O2 Delivery: Room Air - Course Nursing assessment & vital signs reviewed: Yes Ordered Tests: Active Orders 24 hr Category Date Time Status UA W/RFX UR CULTURE Stat Lab 01/07/19 20:20 Completed Lab/Rad Data: Laboratory Results 01/07/19 Range/Units 20:20 Urine Color STRAW (YELLOW) Urine Appearance CLEAR (CLEAR) Urine pH 7.0 (5-6) Ur Specific [place] 1.008 (1.005-1.025) Urine Protein 30 (Negative) Urine Ketones NEGATIVE (NEGATIVE) Urine Blood NEGATIVE (0-5) Joao/ul Urine Nitrite NEGATIVE (NEGATIVE) Urine Bilirubin NEGATIVE (NEGATIVE) Urine Urobilinogen NEGATIVE (0-1) mg/dL Ur Leukocyte Esterase NEGATIVE (NEGATIVE) Urine RBC (Auto) 0-2 (0-2) /HPF U Epithel Cells (Auto) NONE (FEW) /HPF Urine Culture Reflexed NO (NO) Urine Glucose NEGATIVE (NEGATIVE) mg/dL - Progress Progress: improved, re-examined Progress Note: 01/07/19 21:23 pt not confused. family and pt do not want any other workup. i think this is reasonable. they feel she is not sleeping well because of back pain then sleeps during the day. will give a take home norco 5/325 and have pt take 1/2 tab at home and the other 1/2 tomorrow night if needed. Counseled pt/family regarding: lab results, diagnosis, need for follow-up - Departure Time of Disposition: 21:24 Departure Disposition: Home Clinical Impression: Confusion, Insomnia Condition: Stable Critical Care Time: No Referrals: LYNDSEY ARRIAGA MD [Primary Care Provider] - Additional Instructions: drink plenty of fluids. give 1/2 norco tonight at home. repeat tomorrow night if needed. call your primary doctor tomorrow for further management. return to ED if symptoms worsen.
[2019-01-07 20:34] LABS: Appearance CLEAR (CLEAR); Bilirubin NEGATIVE (NEGATIVE); Blood NEGATIVE Ery/ul (0-5); Glucose NEGATIVE (NEGATIVE); Ketones NEGATIVE (NEGATIVE); Leukocyte Esterase NEGATIVE (NEGATIVE); Nitrite NEGATIVE (NEGATIVE); Protein,Urine Dip 30 (Negative); RBC 0-2 /HPF (0-2); Specific Gravity 1.008 (1.005-1.025); Urobilinogen NEGATIVE mg/dL (0-1)
[2019-01-07] MEDS ORDERED: NORCO 5/325 MG PO ONE (21:27)
[2019-01-07 21:31] VITALS: BP 187/82; PULSE 70; O2SAT 99
[2019-01-07] MEDS ORDERED: NORCO 5/325 MG ONE (21:31)
== END 2019-01-07 21:44 | disposition home or self-care (01) ==
LOC: ED 19:17
DX: R41.0 Disorientation, unspecified (principal); G47.00 Insomnia, unspecified; I50.9 Heart failure, unspecified; I10 Essential (primary) hypertension; M19.90 Unspecified osteoarthritis, unspecified site; G40.909 Epilepsy, unspecified, not intractable, without status epilepticus; Z86.73 Personal history of transient ischemic attack (TIA), and cerebral infarction without residual deficits; Z87.440 Personal history of urinary (tract) infections; Z79.899 Other long term (current) drug therapy
CPT/HCPCS: 81001; 99283; A9270-GY

== ENCOUNTER 2019-02-16 13:32 | Inpatient (IN) | payer MEDICARE ==
[~2019-02-16 13:32] MED LIST: Klor Con 10 MEQ PO ONE; Lopressor 50 MG ONE; MAG-OX 400 ONE; ROCEPHIN 1 Gm-D5w 50 ml Bag** 1 G/50 ML IVPB IV ONE; Valium 5 MG ONE
[2019-02-16] MEDS ORDERED: Sodium Chloride 0.9% 500 ML 500 ML IV ONE (15:47)
[2019-02-16] MEDS ORDERED: TYLENOL 325 MG PO PRN (15:57)
[2019-02-16] MEDS ORDERED: Zofran 4 MG/2 ML VIAL IV PRN (15:59)
[2019-02-16 19:03] LABS: Appearance CLEAR (CLEAR); Bilirubin NEGATIVE (NEGATIVE); Blood NEGATIVE Ery/ul (0-5); Epithelial Cells RARE /HPF (FEW); Glucose NEGATIVE (NEGATIVE); Ketones NEGATIVE (NEGATIVE); Leukocyte Esterase NEGATIVE (NEGATIVE); Nitrite NEGATIVE (NEGATIVE); Protein,Urine Dip NEGATIVE (Negative); Specific Gravity 1.008 (1.005-1.025); Urobilinogen NEGATIVE mg/dL (0-1)
[2019-02-16] MEDS: Sodium Chloride 0.9% 1000 ML 1,000 ML IV SCH (20:22)
[2019-02-16] MEDS ORDERED: NORVASC 5 MG PO ONE (21:06)
--- NOTE | 2019-02-16 21:12 | PCM.HP ---
History of Present Illness - Chief Complaint Chief Complaint: DEHYDRATION,BACK PAIN,DIARRHEA History of Present Illness: is a 78 year old female of Dr. Ching with back pain, pulmonary fibrosis, cerebral aneurism, HTN, and hypomagnesemia who came to with 2 weeks of diarrhea and recent dysuria. She had stools 3-4 x a day which became like jelly in consistency. No fever. Decreased po intake. Some vomiting ("dry heaves.") She c/o dizziness and chest pain with walking (resolved with sitting down x 20 min). She was found in to have Cr of 1.9, which is unusually high per her and her daughter's report. She c/o of being very weak today. She was admitted for IV fluids and she is feeling better. The RN was concerned about crackles in her lungs and stopped the bolus; however pt says she is always crackly due to her pulmonary fibrosis. - Review of Systems Constitutional: Weakness, No Fever Abdominal/Gastrointestinal: Vomiting, Diarrhea Genitourinary Symptoms: Dysuria, Frequency, Hematuria (microscopic, not luly), Incontinence Musculoskeletal: Back Pain (resolved after admission) Skin: Rash (intermittent, pruritic) Psychological: Memory Loss, No Depression, No Suicidal Ideations All Other Systems: Reviewed and Negative Medications & Allergies Home Medications: Home Medication List Diazepam 5 mg [Valium 5 MG] 5 mg PO HS 06/01/16 [History Confirmed ] Docusate Sodium 100 mg [Colace 100 MG] 100 mg PO BID PRN PRN 06/01/16 [ History Confirmed 02/16/19] Furosemide 40 mg [Lasix 40 MG] 40 mg PO BID 06/01/16 [History Confirmed ] Metoprolol Tartrate 50 mg [Lopressor 50 MG] 50 mg PO BID 06/01/16 [ History Confirmed 02/16/19] Potassium Chloride 10 Meq Tab* [Klor Con 10 MEQ] 10 meq PO BID 06/01/16 [ History Confirmed 02/16/19] Sennosides/Docusate Sodium [Senokot-S Tablet] 1 - 2 each PO BID PRN PRN [History Confirmed 02/16/19] Clopidogrel Bisulfate 75 mg [PLAVIX 75 MG Tablet] 75 mg PO DAILY #30 tablet 09/01/17 [Rx Confirmed 02/16/19] Lisinopril 20 mg [Zestril 20 MG] 40 mg PO DAILY #30 tablet 09/01/17 [Rx Confirmed 02/16/19] PANTOPRAZOLE 40 mg Tablet [Protonix 40MG Tablet] 40 mg PO DAILY #30 tab [Rx Confirmed 02/16/19] Amlodipine Besylate 2.5 mg PO DAILY 02/16/19 [History Confirmed 02/16/19] Aspirin EC 81 mg [Ecotrin 81 mg] 81 mg PO DAILY 02/16/19 [History Confirmed 02/16/19] Magnesium Oxide 400 mg PO BID 02/16/19 [History Confirmed 02/16/19] metOLazone [Metolazone] 2.5 mg PO UD 02/16/19 [History Confirmed 02/16/19] Allergies/Adverse Reactions: Allergies Allergy/AdvReac Type Severity Reaction Status Date / Time acetaminophen Allergy Verified 06/01/16 16:40 [From Darvocet-N] diltiazem HCl [From Cardizem] Allergy Verified 06/01/16 16:40 hydralazine HCl Allergy Verified 06/01/16 16:40 [From Apresoline] morphine Allergy Verified 06/01/16 16:40 propoxyphene napsylate Allergy Verified 06/01/16 16:40 [From Darvocet-N] tetracycline Allergy Verified 06/01/16 16:40 roxanol Allergy Uncoded 06/01/16 16:40 - Past Medical History Past Medical History: Yes Neurological History: Stroke, TIA ENT History: Cataracts Cardiac History: Congestive Heart Failure, Hypertension Respiratory History: CHF, Other Endocrine Medical History: No Pertinent History Musculoskelatal History: Arthritis GI Medical History: Ulcer History: No Pertinent History Pyscho-Social History: No Pertinent History Reproductive Disorders: No Pertinent History Comment: pulmonary fibrosis, anemia, hand tremors post stroke - Female History Are you now?: No - Past Surgical History Past Surgical History: Yes Neuro Surgical History: No Pertinent History Cardiac History: No Pertinent History Respiratory Surgery: No Pertinent History GI Surgical History: Appendectomy, Cholecystectomy Genitourinary Surgical Hx: No Pertinent History Musculskeletal Surgical Hx: No Pertinent History Female Surgical History: Hysterectomy Other Surgical History: knee surgery - Social History Smoking Status: Never smoker Exposure to second hand smoke: No Alcohol: None Drug Use: none - Physical Exam Vital Signs: Vital Signs - 24 hr Temp Pulse Resp BP Pulse Ox 02/16/19 15:36 97.8 F 62 20 182/80 93 L Oxygen-Last 24 hours O2 Percentage 3 Liters = 32% Oxygen Flowrate (L/min)-RT 3 General Appearance: no apparent distress, alert Neurologic Exam: oriented x 3, cooperative Eye Exam: eyes nml inspection Ears, Nose, Throat Exam: moist mucous membranes Neck Exam: normal inspection Respiratory Exam: diminished breath sounds, crackles/rales (bilat bases, crackles), No rhonchi, No wheezing Cardiovascular Exam: regular rate/rhythm, normal heart sounds, No murmur Gastrointestinal/Abdomen Exam: soft, normal bowel sounds, tenderness (throughout ), No distention, No mass, No guarding, No rebound Extremity Exam: normal inspection, No pedal edema, No swelling Skin Exam: normal color, warm, dry, No rash Results - Labs Lab/Micro Results: Lab Results-Last 24 Hours 02/16/19 Range/Units 18:49 Urine Color STRAW (YELLOW) Urine Appearance CLEAR (CLEAR) Urine pH 7.0 (5-6) Ur Specific [place] 1.008 (1.005-1.025) Urine Protein NEGATIVE (Negative) Urine Ketones NEGATIVE (NEGATIVE) Urine Blood NEGATIVE (0-5) Joao/ul Urine Nitrite NEGATIVE (NEGATIVE) Urine Bilirubin NEGATIVE (NEGATIVE) Urine Urobilinogen NEGATIVE (0-1) mg/dL Ur Leukocyte Esterase NEGATIVE (NEGATIVE) Urine WBC (Auto) NONE (0-5) /HPF Urine RBC (Auto) NONE (0-2) /HPF U Epithel Cells (Auto) RARE (FEW) /HPF Urine Bacteria (Auto) NONE (NEGATIVE) /HPF Urine Glucose NEGATIVE (NEGATIVE) mg/dL - Other Procedures and Tests Respiratory Therapy 02/16/19 21:05 EKG STAT Assessment/Plan (1) Diarrhea Current Visit: Yes Status: Acute Assessment & Plan: If she has a stool again, will do GI panel. She is currently tolerating bland diet. Last stool yesterday. Code(s): R19.7 - DIARRHEA, UNSPECIFIED (2) Dehydration Current Visit: Yes Status: Acute Assessment & Plan: Gently hydrating her in light of her crackles in lungs (although this could be due to pulmonary fibrosis - will check CXR) and recent chest pain. Code(s): E86.0 - DEHYDRATION (3) Acute renal injury Current Visit: Yes Status: Acute Assessment & Plan: recheck in a.m. Code(s): N17.9 - ACUTE KIDNEY FAILURE, UNSPECIFIED (4) UTI (urinary tract infection) Current Visit: Yes Status: Acute Qualifiers: Urinary tract infection type: acute cystitis Assessment & Plan: Start rocephin - just some microscopic hematuria, but in light of her dysuria and incontinence will treat. Ucx pending. Code(s): N39.0 - URINARY TRACT INFECTION, SITE NOT SPECIFIED (5) Anemia Current Visit: Yes Status: Acute Qualifiers: Anemia type: unspecified type Qualified Code(s): D64.9 - Anemia, unspecified Assessment & Plan: recheck, unsure if this is chronic. Code(s): D64.9 - ANEMIA, UNSPECIFIED (6) Hypertension Current Visit: No Status: Chronic Qualifiers: Hypertension type: essential hypertension Assessment & Plan: BP to 180s systolic - add 1 time dose norvasc 5mg po tonight. Code(s): I10 - ESSENTIAL (PRIMARY) HYPERTENSION
[2019-02-16] MEDS ORDERED: ROCEPHIN 1 Gm-D5w 50 ml Bag** 1 G/50 ML IVPB IV ONE (21:21)
[2019-02-16] MEDS ORDERED: Senokot-S Tablet PO PRN (22:02)
[2019-02-16 22:13] LABS: MAGNESIUM 1.8 mg/dL (1.6-2.3); TSH, 3RD Generation 1.77 mIU/L (0.47-4.68)
[2019-02-16] MEDS: Klor Con 10 MEQ PO SCH (22:35)
[2019-02-16] MEDS: Valium 5 MG PO SCH (22:35)
[2019-02-16] MEDS: MAG-OX 400 PO SCH (22:35)
[2019-02-16] MEDS: Lopressor 50 MG PO SCH (22:35)
[2019-02-17 06:19] LABS: BASOPHIL % 0.2 % (0.0-0.4); Basophil (Absolute #) 0.01 (0-0.4); Eosinophil % 3.7 % (0.00-5.0); Eosinophil (Absolute #) 0.19 (0-0.5); Granulocyte Absolute (ANC) 3.01 (1.4-6.9); Granulocytes % 58.8 % (36.0-66.0); Hematocrit 27.1 % (35-47); Hemoglobin 8.1 gm/dl (12.0-16.0); Lymphocyte (Absolute #) 1.09 (1.0-4.6); Lymphocytes % 21.3 % (24.0-44.0); Mean Corpuscular Hgb Concent. 29.9 g/dl (32-36); Mean Platelet Volume 8.8 fl (6-9.5); Monocyte (Absolute #) 0.82 (0.0-1.3); Platelet Count 247 K/mm3 (150-450); Red Blood Count 2.71 M/mm3 (4.1-5.4); Red Cell Distribution Width 12.1 % (11.5-14.0); White Blood Count 5.1 K/mm3 (4.0-10.5)
[2019-02-17 06:24] LABS: Mean Corpuscular Hemoglobin 29.8 pg (26-32)
[2019-02-17 07:12] LABS: ALBUMIN 2.8 g/dL (3.5-5.0); ANION GAP 12.9 MEQ/L (5-15); BILIRUBIN,TOTAL 0.1 mg/dL (0.2-1.3); Calcium 8.2 mg/dL (8.4-10.2); Creatinine 1 1.37 mg/dL (0.52-1.04); Potassium 5.1 mmol/L (3.5-5.1); Total Protein 5.7 g/dL (6.3-8.2)
[2019-02-17] MEDS: Sodium Chloride 0.9% 1000 ML 1,000 ML IV SCH ×2 (08:00→16:48)
--- NOTE | 2019-02-17 08:16 | XRAY ---
Indication: Crackles. Comparison: August 18, 2017. PA/lateral chest again demonstrates diffuse scattered fibrosis/scarring, left greater than right. No focal infiltrate, consolidation, or large effusion. Heart and mediastinal structures within normal limits. Bony thorax intact again with osteopenia, degenerative changes, and scoliosis. Impression: Nonacute chest with chronic features.
[2019-02-17] MEDS ORDERED: ROCEPHIN 1 Gm-D5w 50 ml Bag** 1 G/50 ML IVPB IV SCH (10:00)
[2019-02-17] MEDS: MAG-OX 400 PO SCH ×2 (10:58→21:39)
[2019-02-17] MEDS: Protonix 40MG Tablet PO SCH (11:00)
[2019-02-17] MEDS: ECOTRIN 81 MG PO SCH (11:00)
[2019-02-17] MEDS: NORVASC 5 MG PO SCH (11:00)
[2019-02-17] MEDS: PLAVIX 75 MG Tablet PO SCH (11:01)
[2019-02-17] MEDS: Lopressor 50 MG PO SCH ×2 (11:01→21:39)
[2019-02-17] MEDS: Zestril 20 MG PO SCH (11:01)
[2019-02-17] MEDS: Klor Con 10 MEQ PO SCH ×2 (11:01→21:39)
--- NOTE | 2019-02-17 13:37 | PCM.NOTE ---
Date and Time: 02/17/19 1332 Subjective Assessment: She is feeling somewhat better. Tolerating bland diet - would like some different foods. Objective Exam General Appearance: no apparent distress, thin Neurologic Exam: alert, cooperative Skin Exam: normal color, warm, dry, No rash Ears, Nose, Throat Exam: moist mucous membranes Respiratory Exam: normal breath sounds (good air exchange), crackles/rales (LLL) , No rhonchi, No wheezing Cardiovascular Exam: regular rate/rhythm, normal heart sounds, No murmur Gastrointestinal/Abdomen Exam: soft, normal bowel sounds, No tenderness, No distention, No mass, No guarding, No rebound Extremity Exam: normal inspection, No pedal edema, No swelling OBJECTIVE DATA Vital Signs: Vital Signs - 24 hr Temp Pulse Resp BP Pulse Ox 02/17/19 11:59 98.4 F 65 17 142/66 100 02/17/19 09:25 18 02/17/19 07:37 97.5 F 61 17 116/57 96 02/17/19 06:00 17 02/17/19 04:00 97.7 F 63 17 145/67 96 02/17/19 02:00 21 02/17/19 00:00 98.3 F 72 21 179/73 96 02/16/19 22:00 20 02/16/19 20:00 98.1 F 66 20 133/60 97 02/16/19 15:36 97.8 F 62 20 182/80 93 L Oxygen-Last 24 hours O2 Percentage 3 Liters = 32% O2 Percentage 3 Liters = 32% O2 Percentage 3 Liters = 32% O2 Percentage 3 Liters = 32% O2 Percentage 3 Liters = 32% O2 Percentage 3 Liters = 32% Oxygen Flowrate (L/min)-RT 3 Pain Assessment - Last Documented Pain Intensity 6 Pain Scale Used FLACC Intake and Output: Intake & Output 02/15/19 02/16/19 02/17/19 02/18/19 11:59 11:59 11:59 11:59 Intake Total 1010 Output Total 1150 Balance -140 Weight 64.8 kg Lab Results: Lab Results-Last 24 Hours 02/16/19 02/16/19 02/16/19 Range/Units 18:49 21:04 22:24 WBC (4.0-10.5) K/mm3 RBC (4.1-5.4) M/mm3 Hgb (12.0-16.0) gm/dl Hct (35-47) % MCV (78-100) fl MCH (26-32) pg MCHC (32-36) g/dl RDW (11.5-14.0) % Plt Count (150-450) K/mm3 MPV (6-9.5) fl Gran % (36.0-66.0) % Eos # (Auto) (0-0.5) Absolute Lymphs (auto) (1.0-4.6) Absolute Monos (auto) (0.0-1.3) Lymphocytes % (24.0-44.0) % Monocytes % (0.0-12.0) % Eosinophils % (0.00-5.0) % Basophils % (0.0-0.4) % Absolute Granulocytes (1.4-6.9) Basophils # (0-0.4) Sodium (137-145) mmol/L Potassium (3.5-5.1) mmol/L Chloride (98-107) mmol/L Carbon Dioxide (22-30) mmol/L Anion Gap (5-15) MEQ/L BUN (7-17) mg/dL Creatinine (0.52-1.04) mg/dL Estimated GFR ML/MIN Glucose (74-106) mg/dL Calcium (8.4-10.2) mg/dL Magnesium 1.8 (1.6-2.3) mg/dL Total Bilirubin (0.2-1.3) mg/dL AST (14-36) U/L ALT (0-35) U/L Alkaline Phosphatase (38-126) U/L Troponin I < 0.012 (0.000-0.034) ng/mL Serum Total Protein (6.3-8.2) g/dL Albumin (3.5-5.0) g/dL TSH 3rd Generation 1.770 (0.47-4.68) mIU/L Urine Color STRAW (YELLOW) Urine Appearance CLEAR (CLEAR) Urine pH 7.0 (5-6) Ur Specific [place] 1.008 (1.005-1.025) Urine Protein NEGATIVE (Negative) Urine Ketones NEGATIVE (NEGATIVE) Urine Blood NEGATIVE (0-5) Joao/ul Urine Nitrite NEGATIVE (NEGATIVE) Urine Bilirubin NEGATIVE (NEGATIVE) Urine Urobilinogen NEGATIVE (0-1) mg/dL Ur Leukocyte Esterase NEGATIVE (NEGATIVE) Urine WBC (Auto) NONE (0-5) /HPF Urine RBC (Auto) NONE (0-2) /HPF U Epithel Cells (Auto) RARE (FEW) /HPF Urine Bacteria (Auto) NONE (NEGATIVE) /HPF Urine Glucose NEGATIVE (NEGATIVE) mg/dL 02/17/19 02/17/19 02/17/19 Range/Units 03:01 06:05 06:05 WBC 5.1 (4.0-10.5) K/mm3 RBC 2.71 L (4.1-5.4) M/mm3 Hgb 8.1 L (12.0-16.0) gm/dl Hct 27.1 L (35-47) % MCV 100.0 (78-100) fl MCH 29.8 (26-32) pg MCHC 29.9 L (32-36) g/dl RDW 12.1 (11.5-14.0) % Plt Count 247 (150-450) K/mm3 MPV 8.8 (6-9.5) fl Gran % 58.8 (36.0-66.0) % Eos # (Auto) 0.19 (0-0.5) Absolute Lymphs (auto) 1.09 (1.0-4.6) Absolute Monos (auto) 0.82 (0.0-1.3) Lymphocytes % 21.3 L (24.0-44.0) % Monocytes % 16.0 H (0.0-12.0) % Eosinophils % 3.7 (0.00-5.0) % Basophils % 0.2 (0.0-0.4) % Absolute Granulocytes 3.01 (1.4-6.9) Basophils # 0.01 (0-0.4) Sodium 135 L (137-145) mmol/L Potassium 5.1 (3.5-5.1) mmol/L Chloride 91 L D (98-107) mmol/L Carbon Dioxide 36 H (22-30) mmol/L Anion Gap 12.9 (5-15) MEQ/L BUN 57 H (7-17) mg/dL Creatinine 1.37 H (0.52-1.04) mg/dL Estimated GFR 39.5 ML/MIN Glucose 101 (74-106) mg/dL Calcium 8.2 L (8.4-10.2) mg/dL Magnesium (1.6-2.3) mg/dL Total Bilirubin 0.10 L (0.2-1.3) mg/dL AST 14 (14-36) U/L ALT 8 (0-35) U/L Alkaline Phosphatase 57 (38-126) U/L Troponin I < 0.012 (0.000-0.034) ng/mL Serum Total Protein 5.7 L (6.3-8.2) g/dL Albumin 2.8 L (3.5-5.0) g/dL TSH 3rd Generation (0.47-4.68) mIU/L Urine Color (YELLOW) Urine Appearance (CLEAR) Urine pH (5-6) Ur Specific [place] (1.005-1.025) Urine Protein (Negative) Urine Ketones (NEGATIVE) Urine Blood (0-5) Joao/ul Urine Nitrite (NEGATIVE) Urine Bilirubin (NEGATIVE) Urine Urobilinogen (0-1) mg/dL Ur Leukocyte Esterase (NEGATIVE) Urine WBC (Auto) (0-5) /HPF Urine RBC (Auto) (0-2) /HPF U Epithel Cells (Auto) (FEW) /HPF Urine Bacteria (Auto) (NEGATIVE) /HPF Urine Glucose (NEGATIVE) mg/dL 02/17/19 02/17/19 Range/Units 06:05 09:30 WBC (4.0-10.5) K/mm3 RBC (4.1-5.4) M/mm3 Hgb (12.0-16.0) gm/dl Hct (35-47) % MCV (78-100) fl MCH (26-32) pg MCHC (32-36) g/dl RDW (11.5-14.0) % Plt Count (150-450) K/mm3 MPV (6-9.5) fl Gran % (36.0-66.0) % Eos # (Auto) (0-0.5) Absolute Lymphs (auto) (1.0-4.6) Absolute Monos (auto) (0.0-1.3) Lymphocytes % (24.0-44.0) % Monocytes % (0.0-12.0) % Eosinophils % (0.00-5.0) % Basophils % (0.0-0.4) % Absolute Granulocytes (1.4-6.9) Basophils # (0-0.4) Sodium (137-145) mmol/L Potassium (3.5-5.1) mmol/L Chloride (98-107) mmol/L Carbon Dioxide (22-30) mmol/L Anion Gap (5-15) MEQ/L BUN (7-17) mg/dL Creatinine (0.52-1.04) mg/dL Estimated GFR ML/MIN Glucose (74-106) mg/dL Calcium (8.4-10.2) mg/dL Magnesium (1.6-2.3) mg/dL Total Bilirubin (0.2-1.3) mg/dL AST (14-36) U/L ALT (0-35) U/L Alkaline Phosphatase (38-126) U/L Troponin I < 0.012 < 0.012 (0.000-0.034) ng/mL Serum Total Protein (6.3-8.2) g/dL Albumin (3.5-5.0) g/dL TSH 3rd Generation (0.47-4.68) mIU/L Urine Color (YELLOW) Urine Appearance (CLEAR) Urine pH (5-6) Ur Specific [place] (1.005-1.025) Urine Protein (Negative) Urine Ketones (NEGATIVE) Urine Blood (0-5) Joao/ul Urine Nitrite (NEGATIVE) Urine Bilirubin (NEGATIVE) Urine Urobilinogen (0-1) mg/dL Ur Leukocyte Esterase (NEGATIVE) Urine WBC (Auto) (0-5) /HPF Urine RBC (Auto) (0-2) /HPF U Epithel Cells (Auto) (FEW) /HPF Urine Bacteria (Auto) (NEGATIVE) /HPF Urine Glucose (NEGATIVE) mg/dL Radiology Exams: Radiology Procedures Category Date Time Status CHEST 2 VIEWS (PA AND LAT) Routine Exams 02/17/19 06:00 Completed Multi-Disciplinary Progress Notes: Multi-Disciplinary Progress Notes 02/17/19 12:29 Case Management Note by Matilda Godoy DISCHARGE PLAN REVIEWED WITH LAYCAREGIVER/DAUGHTER. NORMALLY LIVES ALONE IN THE [facility] AND HER DAUGHTER OR GRANDSON CHECK ON HER DAILY. THE GRANDSON IS A ECONOMIC DEVELOPMENT COORDINATOR AND SETS UP HER MEDS. SHE HAS A BEDSIDE COMMODE, A WALKER, AND AN ELEVATED BED. GIVEN A LIST OF HHC & HOSPICE AGENCIES TO CHOOSE FROM, SHE AND HER SON WILL TALK THIS OVER. PLAN TO RETURN HOME TO [place]REE[place]OD[place] LEVEL OF FUNCTION. WILL CONTINUE TO MONITOR FOR ALL D/C NEEDS. THE FAMILY WILL LET D /C PLANNING KNOW WHETHER THEY CHOOSE HHC OR HOSPICE AND THAT WILL BE ARRANGED. Initialized on 02/17/19 12:29 - END OF NOTE Assessment/Plan (1) Diarrhea Current Visit: Yes Status: Resolved Qualifiers: Diarrhea type: unspecified type Qualified Code(s): R19.7 - Diarrhea, unspecified Assessment & Plan: Resolved. Code(s): R19.7 - DIARRHEA, UNSPECIFIED (2) Dehydration Current Visit: Yes Status: Acute Assessment & Plan: Some improvement. Cr from 1.9 on admission to 1.37 today. Will continue IV fluids at 100cc/hr. Code(s): E86.0 - DEHYDRATION (3) Acute renal injury Current Visit: Yes Status: Acute Code(s): N17.9 - ACUTE KIDNEY FAILURE, UNSPECIFIED (4) UTI (urinary tract infection) Current Visit: Yes Status: Acute Qualifiers: Urinary tract infection type: acute cystitis Assessment & Plan: On IV rocephin Code(s): N39.0 - URINARY TRACT INFECTION, SITE NOT SPECIFIED (5) Anemia Current Visit: Yes Status: Acute Qualifiers: Anemia type: unspecified type Qualified Code(s): D64.9 - Anemia, unspecified Assessment & Plan: hgb from 9.6 on admission to 8.1 today. Family notes she has a history of anemia - was started on po iron but couldn't tolerate it due to constipation. Discussed adding miralax. Will recheck tomorrow. Code(s): D64.9 - ANEMIA, UNSPECIFIED (6) Hypertension Current Visit: No Status: Chronic Qualifiers: Hypertension type: essential hypertension Assessment & Plan: All bp < 180 systolic. Code(s): I10 - ESSENTIAL (PRIMARY) HYPERTENSION (7) DVT prophylaxis Current Visit: Yes Status: Acute Assessment & Plan: She has a history of PUD and GI bleed, with current Hgb 8.1, so will do SCDs for prophylaxis. Code(s): [id number] -
[2019-02-17] MEDS: Valium 5 MG PO SCH (21:39)
[2019-02-17] MEDS: ROCEPHIN 1 Gm-D5w 50 ml Bag** 1 G/50 ML IVPB IV SCH (21:40)
[2019-02-18] MEDS: Sodium Chloride 0.9% 1000 ML 1,000 ML IV SCH (05:49)
[2019-02-18 06:10] LABS: Hematocrit 30.5 % (35-47); Hemoglobin 9.2 gm/dl (12.0-16.0); Mean Cell Volume 101.7 fl (78-100); Mean Corpuscular Hgb Concent. 30.2 g/dl (32-36); Mean Platelet Volume 10.9 fl (6-9.5); Platelet Count 195 K/mm3 (150-450); Red Cell Distribution Width 12.3 % (11.5-14.0); White Blood Count 5.7 K/mm3 (4.0-10.5)
[2019-02-18 06:17] LABS: Mean Corpuscular Hemoglobin 30.6 pg (26-32)
[2019-02-18 07:37] LABS: ANION GAP 13.2 MEQ/L (5-15); Calcium 7.7 mg/dL (8.4-10.2); Creatinine 1 1.07 mg/dL (0.52-1.04); Potassium 5.5 mmol/L (3.5-5.1)
[2019-02-18 07:44] LABS: BAND 2 % (0.0-2.0); Eosinophil 2 % (0.00-3.0); Lymphocytes 19 % (24-44); Monocyte 3 % (0.0-12.0); Neutrophils 74 % (36.0-66.0); Nucleated Red Blood Cell 2 %; Total Cells Counted 100
[2019-02-18 07:45] LABS: ANISOCYTOSIS 1+; Platelet Estimate NORMAL (NORMAL); Poikilocytosis 1+; Polychromasia RARE; Toxic Granulation 1+
[2019-02-18] MEDS: Protonix 40MG Tablet PO SCH (10:50)
[2019-02-18] MEDS: NORVASC 5 MG PO SCH (10:50)
[2019-02-18] MEDS: Lopressor 50 MG PO SCH ×2 (10:50→21:40)
[2019-02-18] MEDS: ECOTRIN 81 MG PO SCH (10:50)
[2019-02-18] MEDS: Klor Con 10 MEQ PO SCH ×2 (10:50→21:40)
[2019-02-18] MEDS: Zestril 20 MG PO SCH (10:51)
[2019-02-18] MEDS: MAG-OX 400 PO SCH ×2 (10:51→21:41)
[2019-02-18] MEDS: PLAVIX 75 MG Tablet PO SCH (10:51)
--- NOTE | 2019-02-18 12:55 | PCM.NOTE ---
Date and Time: 02/18/19 1253 Subjective Assessment: still very weak, shortness of breath - Review of Systems Constitutional: Fatigue, Lethargy, Weakness, No Fever, No Chills Eyes: No Symptoms Ears, Nose, & Throat: No Symptoms Respiratory: Orthopnea, Short Of Breath, No Cough Cardiac: No Chest Pain, No Edema, No Syncope Abdominal/Gastrointestinal: No Abdominal Pain, No Nausea, No Vomiting, No Diarrhea Genitourinary Symptoms: No Dysuria Musculoskeletal: No Back Pain, No Neck Pain Skin: No Rash Neurological: No Dizziness, No Focal Weakness, No Sensory Changes Psychological: No Symptoms Endocrine: No Symptoms Hematologic/Lymphatic: No Symptoms Immunological/Allergic: No Symptoms Objective Exam General Appearance: moderate distress, alert Neurologic Exam: alert, oriented x 3, cooperative, normal mood/affect, nml cerebellar function, sensation nml, No motor deficits Skin Exam: normal color, warm, dry Eye Exam: PERRL, EOMI, eyes nml inspection Ears, Nose, Throat Exam: normal ENT inspection, pharynx normal, moist mucous membranes Neck Exam: normal inspection, non-tender, supple, full range of motion Respiratory Exam: normal breath sounds, lungs clear, No respiratory distress Cardiovascular Exam: regular rate/rhythm, normal heart sounds Gastrointestinal/Abdomen Exam: soft, No tenderness, No mass Extremity Exam: normal inspection, normal range of motion Back Exam: normal inspection, normal range of motion, No CVA tenderness, No vertebral tenderness Pelvic Exam: deferred Rectal Exam: deferred OBJECTIVE DATA Vital Signs: Vital Signs - 24 hr Temp Pulse Resp BP Pulse Ox 02/18/19 07:48 98.4 F 69 16 190/75 100 02/18/19 07:45 100 02/18/19 06:00 20 02/18/19 04:00 98.6 F 74 20 163/70 97 02/18/19 02:00 20 02/18/19 00:10 98.3 F 63 20 161/72 98 02/17/19 22:00 20 02/17/19 20:00 98.4 F 63 20 153/69 97 02/17/19 17:08 18 02/17/19 16:00 98.3 F 59 L 17 136/64 99 02/17/19 14:00 17 Oxygen-Last 24 hours O2 Percentage 3 Liters = 32% O2 Percentage 3 Liters = 32% O2 Percentage 3 Liters = 32% O2 Percentage 3 Liters = 32% O2 Percentage 3 Liters = 32% Pain Assessment - Last Documented Pain Intensity 6 [facility] Intake and Output: Intake & Output 02/16/19 02/17/19 02/18/19 02/19/19 11:59 11:59 11:59 11:59 Intake Total 1010 3632 Output Total 1150 2400 Balance -140 1232 Weight 64.8 kg Lab Results: Lab Results-Last 24 Hours 02/18/19 02/18/19 Range/Units 05:38 05:38 WBC 5.7 (4.0-10.5) K/mm3 RBC 3.00 L (4.1-5.4) M/mm3 Hgb 9.2 L (12.0-16.0) gm/dl Hct 30.5 L (35-47) % MCV 101.7 H (78-100) fl MCH 30.6 (26-32) pg MCHC 30.2 L (32-36) g/dl RDW 12.3 (11.5-14.0) % Plt Count 195 (150-450) K/mm3 MPV 10.9 H (6-9.5) fl Segmented Neutrophils 74 H (36.0-66.0) % Band Neutrophils 2 (0.0-2.0) % Lymphocytes (Manual) 19 L (24-44) % Monocytes (Manual) 3 (0.0-12.0) % Eosinophils (Manual) 2 (0.00-3.0) % Nucleated RBCs 2 % Toxic Granulation 1+ Platelet Estimate NORMAL (NORMAL) RBC Morphology ABNORMAL Polychromasia RARE Poikilocytosis 1+ Anisocytosis 1+ Sodium 134 L (137-145) mmol/L Potassium 5.5 H (3.5-5.1) mmol/L Chloride 95 L (98-107) mmol/L Carbon Dioxide 32 H (22-30) mmol/L Anion Gap 13.2 (5-15) MEQ/L BUN 38 H (7-17) mg/dL Creatinine 1.07 H (0.52-1.04) mg/dL Estimated GFR 52.6 ML/MIN Glucose 101 (74-106) mg/dL Calcium 7.7 L (8.4-10.2) mg/dL Radiology Exams: Radiology Procedures Category Date Time Status CHEST 2 VIEWS (PA AND LAT) Routine Exams 02/17/19 06:00 Completed Assessment/Plan (1) Acute renal injury Current Visit: Yes Status: Acute Assessment & Plan: Last Vital Signs Temp 98.4 F 02/18/19 07:48 Pulse 69 02/18/19 07:48 Resp 16 02/18/19 07:48 BP 190/75 02/18/19 07:48 Pulse Ox 100 02/18/19 07:48 Allergies acetaminophen [From Darvocet-N] Allergy (Verified 06/01/16 16:40) diltiazem HCl [From Cardizem] Allergy (Verified 06/01/16 16:40) hydralazine HCl [From Apresoline] Allergy (Verified 06/01/16 16:40) morphine Allergy (Verified 06/01/16 16:40) propoxyphene napsylate [From Darvocet-N] Allergy (Verified 06/01/16 16:40) tetracycline Allergy (Verified 06/01/16 16:40) roxanol Allergy (Uncoded 06/01/16 16:40) Active Medications Acetaminophen (Tylenol 325 Mg) 650 mg PO Q4H PRN PRN PRN Reason: PAIN AND/OR FEVER Stop: 03/18/19 15:56 Amlodipine Besylate (Norvasc 5 Mg) 2.5 mg PO DAILY [facility] Stop: 03/19/19 09:59 Last Admin: 02/18/19 10:50 Dose: 2.5 mg Aspirin (Ecotrin 81 Mg) 81 mg PO DAILY BARBIE Stop: 03/19/19 09:59 Last Admin: 02/18/19 10:50 Dose: 81 mg Clopidogrel Bisulfate (Plavix 75 Mg Tablet) 75 mg PO DAILY BARBIE Stop: 03/19/19 09:59 Last Admin: 02/18/19 10:51 Dose: 75 mg Diazepam (Valium 5 Mg) 5 mg PO HS [facility] Stop: 03/18/19 21:59 Last Admin: 02/17/19 21:39 Dose: 5 mg Sodium Chloride (Sodium Chloride 0.9% 1000 Ml) 1,000 mls @ 100 mls/hr IV .Q10H BARBIE Stop: 03/18/19 15:59 Last Admin: 02/18/19 05:49 Dose: 100 mls/hr Ceftriaxone Sodium/Dextrose (Rocephin 1 Gm-D5w 50 Ml Bag) 1 g in 50 mls @ 100 mls/hr IV QPM [facility] Stop: 03/19/19 09:59 Last Admin: 02/17/19 21:40 Dose: 100 mls/hr Lisinopril (Zestril 20 Mg) 40 mg PO DAILY [facility] Stop: 03/19/19 09:59 Last Admin: 02/18/19 10:51 Dose: 40 mg Magnesium Oxide (Mag-Ox 400) 400 mg PO BID [facility] Stop: 03/18/19 21:59 Last Admin: 02/18/19 10:51 Dose: 400 mg Metoprolol Tartrate (Lopressor 50 Mg) 50 mg PO BID [facility] Stop: 03/18/19 21:59 Last Admin: 02/18/19 10:50 Dose: 50 mg Ondansetron HCl (Zofran 4 Mg/2 Ml Vial) 4 mg IV Q4H PRN PRN PRN Reason: NAUSEA/VOMITING Stop: 03/18/19 15:58 Pantoprazole Sodium (Protonix 40mg Tablet) 40 mg PO DAILY [facility] Stop: 03/19/19 09:59 Last Admin: 02/18/19 10:50 Dose: 40 mg Potassium Chloride (Klor Con 10 Meq) 10 meq PO BID [facility] Stop: 03/18/19 22:09 Last Admin: 02/18/19 10:50 Dose: 10 meq Senna/Docusate Sodium (Senokot-S Tablet) 0 udtab PO BIDP PRN PRN Reason: CONSTIPATION Stop: 03/18/19 22:01 Intake & Output 02/18/19 02/19/19 11:59 11:59 Intake Total 3632 Output Total 2400 Balance 1232 Orders 02/18/19 07:44 Oxygen Nasal Cannula 3 lpm Pulse Oximetry .spot check Lab Tests 02/18/19 02/18/19 05:38 05:38 WBC 5.7 RBC 3.00 L Hgb 9.2 L Hct 30.5 L MCV 101.7 H MCH 30.6 MCHC 30.2 L RDW 12.3 Plt Count 195 MPV 10.9 H Segmented Neutrophils 74 H Band Neutrophils 2 Lymphocytes (Manual) 19 L Monocytes (Manual) 3 Eosinophils (Manual) 2 Nucleated RBCs 2 Toxic Granulation 1+ Platelet Estimate NORMAL RBC Morphology ABNORMAL Polychromasia RARE Poikilocytosis 1+ Anisocytosis 1+ Sodium 134 L Potassium 5.5 H Chloride 95 L Carbon Dioxide 32 H Anion Gap 13.2 BUN 38 H Creatinine 1.07 H Estimated GFR 52.6 Glucose 101 Calcium 7.7 L Microbiology 02/16/19 21:32 Urine, Void Urine Culture - Final MIXED ALLYSSA; 3 OR MORE TYPES. NO PREDOMINANT ORGANISM. NO FURTHER WORKUP. PLEASE RESUBMIT IF CLINICALLY INDICATED. Code(s): N17.9 - ACUTE KIDNEY FAILURE, UNSPECIFIED (2) UTI (urinary tract infection) Current Visit: Yes Status: Acute Qualifiers: Urinary tract infection type: acute cystitis Code(s): N39.0 - URINARY TRACT INFECTION, SITE NOT SPECIFIED (3) Diarrhea Current Visit: Yes Status: Resolved Qualifiers: Diarrhea type: unspecified type Qualified Code(s): R19.7 - Diarrhea, unspecified Code(s): R19.7 - DIARRHEA, UNSPECIFIED (4) Pulmonary arterial hypertension Current Visit: No Status: Chronic Code(s): I27.21 - SECONDARY PULMONARY ARTERIAL HYPERTENSION
[2019-02-18] MEDS: Catapres 0.1 MG PO PRN ×2 (14:05→21:40)
--- NOTE | 2019-02-18 14:37 | XRAY ---
Indication: Right facial droop. Lethargy. Possible stroke. Multiple contiguous axial images obtained through the head without contrast. Comparison: October 03, 2017. Base of the brain slightly degraded by motion. Again age-appropriate global atrophy, mild/moderate periventricular degenerative micro-ischemia bilaterally, and remote left caudate head lacunar infarct. Again no acute intracranial hemorrhage, abnormal extra-axial fluid collection, or mass effect. Fourth ventricle is midline without hydrocephalus. Bony calvarium intact. Visualized paranasal sinuses and mastoid air cells are essentially clear. Impression: Mild motion artifact. Grossly nonacute senile brain again with remote left caudate head lacunar infarct. MRI may yield further information if there remains further clinical concern. CT DI 67.99
[2019-02-18 15:31] LABS: INR 1.09 (0.8-3.0); PROTIME 12.7 SECONDS (9.95-12.35)
--- NOTE | 2019-02-18 17:01 | XRAY ---
Indication: Left hand weakness. Possible stroke. Sagittal, coronal, and axial MRI brain was performed without contrast using T1, T2, FLAIR, diffusion, and ADC sequences. Comparison: August 22, 2017. Stable age-appropriate global atrophy and moderate periventricular degenerative micro-ischemia signal bilaterally. Also stable minimal micro-ischemia signal in the brainstem. New finding small remote lacunar infarcts in the left mid periventricular white matter and left caudate head. No acute intracranial hemorrhage, abnormal extra-axial fluid collection, or mass effect. Diffusion images negative for restricted signal. Fourth ventricle is midline without hydrocephalus. 7/8 cranial nerve complex bilaterally symmetric. Normal flow-void signal within the major intracerebral circulation. Normal-appearing craniocervical junction and sella turcica. Paranasal sinuses clear. Impression: 1. New finding old lacunar infarcts in the left periventricular white matter and left caudate head. 2. Stable atrophy and degenerative micro-ischemia. 3. No acute intracranial abnormalities or evidence for evolving large vessel territorial stroke.
[2019-02-18] MEDS: ROCEPHIN 1 Gm-D5w 50 ml Bag** 1 G/50 ML IVPB IV SCH (21:41)
[2019-02-18] MEDS: Valium 5 MG PO SCH (23:50)
[2019-02-19] MEDS: Sodium Chloride 0.9% 1000 ML 1,000 ML IV SCH ×2 (01:09→11:21)
--- NOTE | 2019-02-19 09:13 | PCM.NOTE ---
Date and Time: 02/19/19909 Subjective Assessment: last 24 hours events noted. Patient has cerebrovascular accident yesterday, teleneuro consult - Review of Systems Constitutional: No Fever, No Chills Eyes: No Symptoms Ears, Nose, & Throat: No Symptoms Respiratory: No Cough, No Short Of Breath Cardiac: No Chest Pain, No Edema, No Syncope Abdominal/Gastrointestinal: No Abdominal Pain, No Nausea, No Vomiting, No Diarrhea Genitourinary Symptoms: No Dysuria Musculoskeletal: No Back Pain, No Neck Pain Skin: No Rash Neurological: No Dizziness, No Focal Weakness, No Sensory Changes Psychological: No Symptoms Endocrine: No Symptoms Hematologic/Lymphatic: No Symptoms Immunological/Allergic: No Symptoms Objective Exam General Appearance: no apparent distress, alert Neurologic Exam: motor deficits, sensory deficit, disoriented, confusion, motor weakness, facial droop, aphasia, dysarthria Skin Exam: warm, dry Eye Exam: PERRL, EOMI, eyes nml inspection Ears, Nose, Throat Exam: moist mucous membranes Neck Exam: non-tender, supple Respiratory Exam: normal breath sounds, No respiratory distress Cardiovascular Exam: regular rate/rhythm, normal heart sounds Gastrointestinal/Abdomen Exam: soft, No tenderness, No mass Extremity Exam: normal inspection, normal range of motion Back Exam: normal inspection, normal range of motion, No CVA tenderness, No vertebral tenderness Pelvic Exam: deferred Rectal Exam: deferred OBJECTIVE DATA Vital Signs: Vital Signs - 24 hr Temp Pulse Resp BP Pulse Ox 02/19/19 03:51 97.3 F 75 28 H 132/66 95 02/19/19 02:25 96 02/19/19 02:06 83 17 184/73 99 02/19/19 00:40 99 02/19/19 00:00 96.9 F 82 86/50 02/18/19 21:07 94 L 02/18/19 20:00 100.8 F 79 25 H 203/80 98 02/18/19 16:00 98.5 F 62 17 154/65 99 02/18/19 12:00 97.8 F 69 16 195/79 98 Oxygen-Last 24 hours O2 Percentage 6 Liters = 44% O2 Percentage 100% O2 Percentage 3 Liters = 32% O2 Percentage 3 Liters = 32% O2 Percentage 3 Liters = 32% O2 Percentage 3 Liters = 32% Pain Assessment - Last Documented Pain Intensity 0 Pain Scale Used Reyna-Hercules Faces Intake and Output: Intake & Output 02/16/19 02/17/19 02/18/19 02/19/19 11:59 11:59 11:59 11:59 Intake Total 1010 3872 1539 Output Total 1150 2700 800 Balance -140 1172 739 Weight 64.8 kg Lab Results: Lab Results-Last 24 Hours 02/18/19 Range/Units 06:00 PT 12.7 H (9.95-12.35) SECONDS INR 1.09 (0.8-3.0) Radiology Exams: Radiology Procedures Category Date Time Status HEAD WITHOUT CONTRAST [CT] Stat Exams 02/18/19 14:11 Completed MRI BRAIN W/O CONTRAST [MRI] Stat Exams 02/18/19 16:06 Completed Assessment/Plan (1) Cerebrovascular accident (CVA) determined by clinical assessment Current Visit: Yes Status: Acute Code(s): I63.9 - CEREBRAL INFARCTION, UNSPECIFIED (2) Acute renal injury Current Visit: Yes Status: Acute Code(s): N17.9 - ACUTE KIDNEY FAILURE, UNSPECIFIED (3) UTI (urinary tract infection) Current Visit: Yes Status: Acute Qualifiers: Urinary tract infection type: acute cystitis Code(s): N39.0 - URINARY TRACT INFECTION, SITE NOT SPECIFIED (4) Diarrhea Current Visit: Yes Status: Resolved Qualifiers: Diarrhea type: unspecified type Qualified Code(s): R19.7 - Diarrhea, unspecified Code(s): R19.7 - DIARRHEA, UNSPECIFIED (5) Pulmonary arterial hypertension Current Visit: No Status: Chronic Code(s): I27.21 - SECONDARY PULMONARY ARTERIAL HYPERTENSION
[2019-02-19] MEDS ORDERED: Catapres-TTS 1 PATCH TOP SCH (10:00)
[2019-02-19] MEDS: Zestril 20 MG PO SCH (10:20)
[2019-02-19] MEDS: PLAVIX 75 MG Tablet PO SCH (10:20)
[2019-02-19] MEDS: Protonix 40MG Tablet PO SCH (10:20)
[2019-02-19] MEDS: MAG-OX 400 PO SCH ×2 (10:20→22:30)
[2019-02-19] MEDS: Lopressor 50 MG PO SCH ×2 (10:20→22:30)
[2019-02-19] MEDS: ECOTRIN 81 MG PO SCH (10:20)
[2019-02-19] MEDS: Klor Con 10 MEQ PO SCH ×2 (10:20→22:30)
[2019-02-19] MEDS: NORVASC 5 MG PO SCH (10:20)
[2019-02-19] MEDS: ROCEPHIN 1 Gm-D5w 50 ml Bag** 1 G/50 ML IVPB IV SCH (21:39)
[2019-02-19] MEDS: Valium 5 MG PO SCH (22:30)
[2019-02-20] MEDS: Sodium Chloride 0.9% 1000 ML 1,000 ML IV SCH (03:51)
[2019-02-20] MEDS ORDERED: FEVERALL 650 MG PR PRN (10:04)
[2019-02-20] MEDS ORDERED: Lasix 40 MG/4 ML IV ONE (10:15)
[2019-02-20] MEDS: Klor Con 10 MEQ PO SCH ×2 (10:27→22:00)
[2019-02-20] MEDS: PLAVIX 75 MG Tablet PO SCH (10:27)
[2019-02-20] MEDS: ECOTRIN 81 MG PO SCH (10:27)
[2019-02-20] MEDS: MAG-OX 400 PO SCH ×2 (10:27→22:00)
[2019-02-20] MEDS: Lopressor 50 MG PO SCH ×2 (10:27→22:00)
[2019-02-20] MEDS: NORVASC 5 MG PO SCH (10:27)
[2019-02-20] MEDS: Protonix 40MG Tablet PO SCH (10:28)
[2019-02-20] MEDS: Zestril 20 MG PO SCH (10:28)
--- NOTE | 2019-02-20 13:43 | PCM.NOTE ---
Date and Time: 02/20/19 1338 Subjective Assessment: patient unconscious, will continue comfort care - Review of Systems Constitutional: Lethargy Respiratory: Short Of Breath Objective Exam General Appearance: other (unconscious) Respiratory Exam: diminished breath sounds Cardiovascular Exam: irregular OBJECTIVE DATA Vital Signs: Vital Signs - 24 hr Temp Pulse Resp BP Pulse Ox 02/20/19 12:00 101 F 106 H 29 H 145/63 90 L 02/20/19 11:45 91 L 02/20/19 08:00 99.4 F 102 H 27 H 119/53 96 02/20/19 07:19 94 L 02/20/19 07:05 102 H 30 H 94 L 02/20/19 06:00 27 H 02/20/19 03:56 99.5 F 102 H 27 H 78/37 95 02/20/19 02:00 27 H 02/20/19 00:33 85 L 02/20/19 00:00 100.9 F 100 H 28 H 82/39 91 L 02/19/19 22:00 26 H 02/19/19 20:30 99.6 F 98 H 26 H 111/53 97 02/19/19 20:24 82 18 93 L 02/19/19 14:00 98.7 F 83 94 H 129/58 24 L Oxygen-Last 24 hours O2 Percentage 100% O2 Percentage 100% O2 Percentage 6 Liters = 44% O2 Percentage 5 Liters = 40% Oxygen Flowrate (L/min)-RT 15 Oxygen Flowrate (L/min)-RT 15 Pain Assessment - Last Documented Pain Intensity 0 Pain Scale Used FLACC Intake and Output: Intake & Output 02/18/19 02/19/19 02/20/19 02/21/19 11:59 11:59 11:59 11:59 Intake Total 3872 1539 1033 Output Total 2700 800 300 Balance 1172 739 733 Weight 64.8 kg Radiology Exams: Radiology Procedures Category Date Time Status HEAD WITHOUT CONTRAST [CT] Stat Exams 02/18/19 14:11 Completed MRI BRAIN W/O CONTRAST [MRI] Stat Exams 02/18/19 16:06 Completed Multi-Disciplinary Progress Notes: Multi-Disciplinary Progress Notes 02/20/19 00:36 Respiratory Note by Devin Delacruz I HAD TO TITRATE PT UP TO 15LPM ON HER OXYMASK TO MAINTAIN A SAT OF 91%. HR WAS 100, RR WAS 28. WHEN I CHECKED ON PT SHE HAD SATS OF 85% ON 6LPM. INFORMED [employer] NUR[employer]. Initialized on 02/20/19 00:36 - END OF NOTE Assessment/Plan (1) Cerebrovascular accident (CVA) determined by clinical assessment Current Visit: Yes Status: Acute Code(s): I63.9 - CEREBRAL INFARCTION, UNSPECIFIED (2) Acute renal injury Current Visit: Yes Status: Acute Code(s): N17.9 - ACUTE KIDNEY FAILURE, UNSPECIFIED (3) UTI (urinary tract infection) Current Visit: Yes Status: Acute Qualifiers: Urinary tract infection type: acute cystitis Code(s): N39.0 - URINARY TRACT INFECTION, SITE NOT SPECIFIED (4) Diarrhea Current Visit: Yes Status: Resolved Qualifiers: Diarrhea type: unspecified type Qualified Code(s): R19.7 - Diarrhea, unspecified Code(s): R19.7 - DIARRHEA, UNSPECIFIED (5) Pulmonary arterial hypertension Current Visit: No Status: Chronic Code(s): I27.21 - SECONDARY PULMONARY ARTERIAL HYPERTENSION (6) Cerebrovascular accident (CVA) Current Visit: Yes Status: Acute Qualifiers: CVA mechanism: other Qualified Code(s): I63.89 - Other cerebral infarction Assessment & Plan: comfort care Code(s): I63.9 - CEREBRAL INFARCTION, UNSPECIFIED
[2019-02-20] MEDS ORDERED: SUBLIMAZE 1000 Mcg/ 20 Ml*** 1,500 MCG in Sodium Chloride 0.9% 150 ML 120 ML IV SCH (14:00)
[2019-02-20 20:07] VITALS: PULSE 94; O2SAT 87
[2019-02-20 20:51] VITALS: BP 56/30
[2019-02-20] MEDS: Valium 5 MG PO SCH (22:00)
[2019-02-20] MEDS: ROCEPHIN 1 Gm-D5w 50 ml Bag** 1 G/50 ML IVPB IV SCH (22:00)
--- NOTE | 2019-02-22 13:00 | PCM.DS ---
Discharge Summary Date of Admission: 02/17/19 13:32 Admitting Physician: ALEXANDRO SHEA Consults: Consults on Case 02/18/19 14:16 Tele-Health Consult ROUTINE Primary Care Provider: CORINA,LYNDSEY Allergies Allergies acetaminophen [From Darvocet-N] Allergy (Verified 06/01/16 16:40) diltiazem HCl [From Cardizem] Allergy (Verified 06/01/16 16:40) hydralazine HCl [From Apresoline] Allergy (Verified 06/01/16 16:40) morphine Allergy (Verified 06/01/16 16:40) propoxyphene napsylate [From Darvocet-N] Allergy (Verified 06/01/16 16:40) tetracycline Allergy (Verified 06/01/16 16:40) roxanol Allergy (Uncoded 06/01/16 16:40) Hospital Summary - Hospital Course Hospital Course: patient - Vitals & Intake/Output Vital Signs: Vital Signs Temperature 98.6 F 02/20/19 20:00 Pulse Rate 94 H 02/20/19 20:03 Respiratory Rate 16 02/20/19 20:03 Blood Pressure 56/30 02/20/19 20:00 O2 Sat by Pulse Oximetry 87 L 02/20/19 20:03 Oxygen-Last Documented O2 Percentage 100% Intake & Output: Intake & Output 02/20/19 02/21/19 02/22/19 02/23/19 11:59 11:59 11:59 11:59 Intake Total 1033 723 Output Total 300 Balance 733 723 Weight 64.8 kg - Lab Result Diagrams: 02/18/19 05:38 02/18/19 05:38 Micro Results-Entire Visit: Microbiology 02/19/19 03:29 Urine Culture - Final Urine, Indwelling Catheter NO GROWTH 02/16/19 21:32 Urine Culture - Final Urine, Void MIXED ALLYSSA; 3 OR MORE TYPES. NO PREDOMINANT ORGANISM. NO FURTHER WORKUP. PLEASE RESUBMIT IF CLINICALLY INDICATED. - Procedures and Test Procedures and Tests throughout Hospitalization: Therapy Orders & Screens 02/16/19 21:05 EKG STAT Comment: Diagnosis: DEHYDRATION,BACK PAIN,DIARRHEA 02/18/19 07:44 Oxygen Nasal Cannula 3 lpm Comment: Diagnosis: DEHYDRATION,BACK PAIN,DIARRHEA 02/18/19 22:30 Respiratory Therapy Assessment DAILY Comment: Diagnosis: ACUTE CYSTITIS, BACK PAIN, DIARRHEA Discharge Exam Comments: 02/22/19 12:59 patient Final Diagnosis/Problem List - Final Discharge Diagnosis/Problem (1) Cerebrovascular accident (CVA) determined by clinical assessment Status: Acute Code(s): I63.9 - CEREBRAL INFARCTION, UNSPECIFIED (2) Acute renal injury Status: Acute Code(s): N17.9 - ACUTE KIDNEY FAILURE, UNSPECIFIED (3) UTI (urinary tract infection) Status: Acute Code(s): N39.0 - URINARY TRACT INFECTION, SITE NOT SPECIFIED (4) Diarrhea Status: Resolved Code(s): R19.7 - DIARRHEA, UNSPECIFIED (5) Pulmonary arterial hypertension Status: Chronic Code(s): I27.21 - SECONDARY PULMONARY ARTERIAL HYPERTENSION (6) Cerebrovascular accident (CVA) Status: Acute Code(s): I63.9 - CEREBRAL INFARCTION, UNSPECIFIED - Discharge Discharge Date: 02/21/19 Disposition: Condition: Prescriptions: No Action Furosemide 40 mg [Lasix 40 MG] 40 mg PO BID Sennosides/Docusate Sodium [Senokot-S Tablet] 1 - 2 each PO BID PRN PRN PRN Reason: Constipation Potassium Chloride 10 Meq Tab* [Klor Con 10 MEQ] 10 meq PO BID Diazepam 5 mg [Valium 5 MG] 5 mg PO HS Metoprolol Tartrate 50 mg [Lopressor 50 MG] 50 mg PO BID Docusate Sodium 100 mg [Colace 100 MG] 100 mg PO BID PRN PRN PRN Reason: Constipation Clopidogrel Bisulfate 75 mg [PLAVIX 75 MG Tablet] 75 mg PO DAILY #30 tablet PANTOPRAZOLE 40 mg Tablet [Protonix 40MG Tablet] 40 mg PO DAILY #30 tab Lisinopril 20 mg [Zestril 20 MG] 40 mg PO DAILY #30 tablet metOLazone [Metolazone] 2.5 mg PO UD Magnesium Oxide 400 mg PO BID Amlodipine Besylate 2.5 mg PO DAILY Aspirin EC 81 mg [Ecotrin 81 mg] 81 mg PO DAILY
== END 2019-02-20 22:00 | disposition expired | DRG 65 ==
LOC: MED SURG 13:32 → OBSVTOIN 02-17 13:32
PROVIDERS: ADMIT Family Medicine; ATTEND General Practice
DX: I63.9 Cerebral infarction, unspecified (principal); N17.9 Acute kidney failure, unspecified; N39.0 Urinary tract infection, site not specified; R19.7 Diarrhea, unspecified; I27.21 Secondary pulmonary arterial hypertension; Z79.01 Long term (current) use of anticoagulants; Z79.899 Other long term (current) drug therapy; E86.0 Dehydration; R42 Dizziness and giddiness; R07.9 Chest pain, unspecified; D64.9 Anemia, unspecified; I10 Essential (primary) hypertension
CPT/HCPCS: 36415; 70450; 70551; 71046; 80048; 80053; 81001; 83735; 84443; 84484; 85025; 85610; 87086; 93005; 93268; 94760; G0378; Q3014; J0696; J1940; J3010; A9270-GY